=== PATIENT | female | born 1955 | race Caucasian/White ===

== ENCOUNTER 2019-10-18 16:52 | Emergency (ER) | payer MEDICARE, SELFPAY ==
--- NOTE | 2019-10-18 17:03 | ED.GENADULT ---
HPI - General Adult General Chief complaint: Upper Respiratory Infection Stated complaint: Sore throat Time Seen by Provider: 10/18/19 17:18 Source: patient Mode of arrival: ambulatory Limitations: no limitations History of Present Illness HPI narrative: 63-year-old female patient presents to the [facility] with complaints of sore throat that started last night. Patient states that she has had strep before in the past but is been several years. Patient unknown if she has had any fever. Patient states she has had shortness of breath but that is not new due to the fact that she has history of COPD. Patient states a little bit of bilateral ear pain. Denies any runny nose. Related Data Home Medications Medication Instructions Recorded Confirmed albuterol sulfate 90 mcg/actuation 1 puff INHALATION Q4H PRN 04/19/19 08/17/19 aerosol inhaler celecoxib 200 mg capsule 200 mg PO DAILY 04/19/19 08/17/19 duloxetine 60 mg capsule,delayed 60 mg PO DAILY 04/19/19 08/17/19 release losartan 100 mg tablet 100 mg PO DAILY 04/19/19 08/17/19 simvastatin 40 mg tablet 40 mg PO DAILY 04/19/19 08/17/19 tramadol 50 mg tablet 50 mg PO Q4H PRN 04/19/19 08/17/19 Allergies Allergy/AdvReac Type Severity Reaction Status Date / Time codeine Allergy Mild Confusion Verified 08/17/19 09:56 guaifenesin Allergy Unknown unkn Verified 08/17/19 09:56 lisinopril Allergy Unknown unk Verified 08/17/19 09:56 pseudoephedrine Allergy Unknown unk Verified 08/17/19 09:56 Review of Systems Review of Systems: Narrative: CONSTITUTIONAL: Denies fever, chills, or sweats. EYES: Denies visual changes, redness, or discharge. ENT: Denies rhinorrhea, congestion, positive sore throat, positive bilateral otalgia. CARDIOVASCULAR: Denies chest pain, palpitations, or edema. RESPIRATORY: Denies cough positive chronic dyspnea. GASTROINTESTINAL: Denies abdominal pain, nausea, vomiting, or diarrhea. GENITOURINARY: Denies dysuria or hematuria. SKIN: Denies rash or itching. MUSCULOSKELETAL: Denies back pain, joint pain, or myalgia. NEUROLOGIC: Denies headache, numbness, or weakness. PSYCHIATRIC: Denies anxiety or depression. [facility] Past Medical History Medical History (Updated 10/18/19 @ 17:30 by TRA Garcia) COPD (chronic obstructive pulmonary disease) Fibromyalgia Hypertension COLUMBA (obstructive sleep apnea) Surgical History Surgical History (Updated 10/18/19 @ 17:30 by TRA Garcia) H/O: hysterectomy Hx of laparoscopic gastric banding Family History Family History Father Acute myocardial infarction, Onset Age: 84 Family history of cardiovascular disease, Onset Age: 82 Sibling Cerebrovascular accident Family history of chronic obstructive pulmonary disease Family history of malignant neoplasm of ovary Mother Family history of chronic obstructive pulmonary disease, Onset Age: 84 Other Family history of emphysema Social History Social History Smoking status: Former smoker Smoking end date: 03/23/03 Alcohol intake: never Comments At the time of my signature I agree with nursing past medical history, surgical, social, and family history. There is no relevant family history pertinent to the presenting complaint. Exam Narrative: Exam Narrative: GENERAL: Well-appearing, well-nourished, and in no acute distress. HEAD: Normocephalic, atraumatic. EYES: PERRLA and EOMI. ENT: Nares clear, no rhinorrhea or epistaxis. Mucous membranes moist. Bilateral TMs are clear with no erythema or foreign bodies to the canal. Posterior pharynx with erythema and 2+ tonsil enlargement. No exudates or lesions present. NECK: Supple. No lymphadenopathy CHEST: Clear to auscultation. No respiratory distress. HEART: Regular rate and rhythm. No murmur heard. Normal peripheral pulses. ABDOMEN: Soft, nontender, nondistended, normal
[2019-10-18 17:15] VITALS: BP 140/61; PULSE 103; RESP 16; TEMP 36.7; O2SAT 96
== END 2019-10-18 17:33 | disposition home or self-care (01) ==
PROVIDERS: Emergency Provider Nurse Practitioner Family
DX: J02.0 Streptococcal pharyngitis (principal); Z20.828 Contact with and (suspected) exposure to other viral communicable diseases; Z87.891 Personal history of nicotine dependence; J44.9 Chronic obstructive pulmonary disease, unspecified; M79.7 Fibromyalgia; I10 Essential (primary) hypertension; G47.33 Obstructive sleep apnea (adult) (pediatric)
CPT/HCPCS: 87880; 99213; G0463

== ENCOUNTER 2020-05-18 13:21 | Outpatient (CLI) | payer MEDICARE, SELFPAY ==
--- NOTE | ~2020-05-18 | US_ITS ---
EXAMINATION: US venous doppler [facility] EXAM DATE: 05/18/2020 14:15 INDICATION: Left leg pain. TECHNIQUE: Multiple grayscale, color flow and Doppler images of the left lower extremity deep venous system were obtained and reviewed. Comparison is made to prior examination from 08/31/2017. FINDINGS: The left common femoral, femoral and profunda veins demonstrate normal color flow, respirat ory variation, augmentation and compressibility. Compressibility, color flow confirmed within the le ft popliteal, posterior tibial, peroneal, and greater saphenous veins. IMPRESSION: No left lower extremity deep venous thrombosis. Reviewed, dictated and finalized at location B. PARTNER
== END 2020-05-18 13:22 | disposition home or self-care (01) ==
LOC: ANHIMG 13:29
DX: M79.662 Pain in left lower leg (principal)
CPT/HCPCS: 93971

== ENCOUNTER 2020-10-25 13:51 | Inpatient (IN) | payer MEDICARE, SELFPAY ==
[2020-10-25] VITALS (17 sets, daily range): BP systolic 111–156; BP diastolic 44–101; PULSE 72–99; RESP 20–38; TEMP 36.1–37.3; O2SAT 86–98; BMI 65.2
--- NOTE | ~2020-10-25 | XR_ITS ---
EXAMINATION: XR chest 1V portable INDICATION: Cough, history of COVID TECHNIQUE: Portable AP chest at 1438 hours COMPARISON: 07/19/2015 FINDINGS: There are diffuse opacities throughout all lung zones. The heart size is normal for techniq ue. No pleural effusion or pneumothorax is identified. IMPRESSION: 1. Diffuse lung disease, consistent with pneumonia and/or pulmonary edema. Reviewed, dictated and finalized at location A.
--- NOTE | ~2020-10-25 | CT_ITS ---
EXAMINATION: CTA chest PE protocol DATE: 10/25/2020 16:06 INDICATION: Shortness of breath, elevated d-dimer TECHNIQUE: Computed tomography angiography (CTA) of the chest was performed with 100 mL Omnipaque-350 intravenous contrast timed to evaluate the pulmonary arteries. Coronal maximum intensity projection 3D-reconstructions were created by the technologist. The dose-length product (DLP) was 976.43 mGy-cm. Automated exposure control and iterative reconstruction technique were employed. COMPARISON: 08/31/2017 FINDINGS: The pulmonary arteries are moderately well-opacified. No pulmonary embolism is identified. There are diffuse opacities throughout all lung zones. There is no pleural effusion or pneumothorax. There are stable nodules of thyroid measuring up to 1.3 cm. The heart size is normal. No pathological ly enlarged thoracic lymph nodes are identified. There is a small sliding hiatal hernia. A gastric la p band is noted. The gallbladder is surgically absent. The liver is diffusely low in attenuation when compared with the spleen, consistent with hepatic steatosis. There is moderate thoracic spondylosis. IMPRESSION: 1. Diffuse lung disease, consistent with pneumonia and/or pulmonary edema and/or acute respiratory di stress syndrome (ARDS). 2. No pulmonary embolus identified. Reviewed, dictated and finalized at location A. IMPRESSION: 1. Diffuse lung disease, consistent with pneumonia and/or pulmonary edema and/o r acute respiratory distress syndrome (ARDS). 2. No pulmonary embolus identified.
--- NOTE | ~2020-10-25 | XR_ITS ---
XR chest 1V portable 10/27/2020 06:01 Indication: Acute respiratory failure. Pneumonia. Procedure: AP portable chest Comparison: Comparison to multiple prior studies sequentially, with oldest reviewed study dated 04/2011. Findings: Cardiomegaly with diffuse bilateral airspace disease, most confluent in the right upper lob e. No pleural effusion or pneumothorax. Impression: 1: Diffuse bilateral airspace disease which may represent pneumonia and/or edema. Reviewed, dictated and finalized at location A. Impression: 1: Diffuse bilateral airspace disease which may represent pneumonia and/or yuniel a.
--- NOTE | ~2020-10-25 | XR_ITS ---
EXAMINATION: XR chest 1V portable DATE: 10/26/2020 08:44 INDICATION: COVID pneumonia TECHNIQUE: frontal view of the chest was obtained. COMPARISON: Chest radiograph and CT dated 10/25/2020 FINDINGS: No significant interval change in extensive patchy airspace opacities throughout both lungs relativel y sparing apices and right lower lung zone. No pleural effusion. The cardiomediastinal silhouette is normal. IMPRESSION: 1. No significant change in diffuse lung disease consistent with multifocal pneumonia and/or pulmonar y edema. Reviewed, dictated and finalized at location A. IMPRESSION: 1. No significant change in diffuse lung disease consistent with multifocal pne umonia and/or pulmonary edema.
--- NOTE | 2020-10-25 14:01 | ECG_ITS ---
Measurements Intervals [place] Rate: 95 P: 54 MO: 162 QRS: 4 QRSD: 102 T: 64 QT: 368 QTc: 465 Interpretive Statements SINUS RHYTHM DELAYED PRECORDIAL R/S TRANSITION BORDERLINE ECG Electronically Signed On 10-25-2020 16:34:27 CDT by Vern Molina D.O.
--- NOTE | 2020-10-25 14:40 | PC.NURSE ---
labs still needed on this pt. She was taken to X-ray
[2020-10-25 15:18] LABS: Basophils Percent Auto 0.2 % (0.2-1.2); Hematocrit 39.4 % (37.0-47.0); Immature Granulocyte Absolute 0.09 K/mm3 (0.00-0.031); Immature Granulocyte Percent A 0.9 % (0-0.5); Lymphocytes Absolute Auto 1.41 K/mm3 (0.9-3.2); Lymphocytes Percent Auto 13.9 % (18.3-44.2); Mean Corpuscular HGB Conc 30.5 g/dl (32-36); Mean Corpuscular Hemoglobin 25.2 pg (26-34); Mean Corpuscular Volume 82.8 fl (80-100); Mean Platelet Volume 9.7 fl (7.4-10.4); Monocytes Absolute Auto 1.1 K/mm3 (0.1-0.6); Monocytes Percent Auto 11.1 % (2.6-8.5); Neutrophils Absolute Auto 7.5 K/mm3 (1.3-6.7); Neutrophils Percent Auto 73.9 % (45.5-73.1); Platelet Count Result 356 k/mm3 (150-375); Red Blood Count 4.76 M/mm3 (4.2-5.4); Red Cell Distribution Width 15.8 % (11.5-14.5); White Blood Count 10.1 K/mm3 (4.5-10.0)
[2020-10-25 15:28] LABS: Prothrombin Time 12.7 Seconds (11.1-14.7)
[2020-10-25 15:29] LABS: Partial Thromboplastin Time 34.5 SECONDS (22.3-36.8)
[2020-10-25 15:30] LABS: Alanine Aminotransferase 35 U/L (4-35); Albumin Level 3.2 g/dL (3.5-5.1); Alkaline Phosphatase 153 U/L (38-126); Anion Gap 6 mmol/L (8-16); Aspartate Amino Transferase 56 U/L (14-36); Bilirubin,Total 0.4 mg/dL (0.2-1.3); Blood Urea Nitrogen 15 mg/dL (7-17); Calcium 7.8 mg/dL (8.4-10.2); Carbon Dioxide 30 mmol/L (22-30); Chloride 100 mmol/L (98-107); Estimated CRCL calculation 80 ml/min; Estimated Glomerular Filt Rate 56; Glucose 116 mg/dL (65-110); Potassium 3.2 mmol/L (3.4-5.0); Sodium 136 mmol/L (137-145)
[2020-10-25 15:31] LABS: D Dimer 0.81 ug/mL (<0.48)
--- NOTE | 2020-10-25 15:51 | ED.SOB ---
HPI - SOB/Dyspnea General Chief Complaint: Shortness of Breath/Dyspnea Stated Complaint: SOB, COVID Positive, Weakness Time Seen by Provider: 10/25/20 14:01 Source: RN notes reviewed History of Present Illness HPI Narrative: Patient presents emergency department for shortness of breath. Patient states she was diagnosed with COVID-19 approximately 1 week ago states she did receive the Dae & Dae vaccine patient noted to have increasing shortness of breath was noted to have oxygen saturation in the upper 80s on room air she denies any fevers or chills, chest pain abdominal pain nausea vomiting or any other symptoms patient states her testing was done at [facility] when she been contacted by the [facility] that her test was positive Related Data Home Medications Medication Instructions Recorded Confirmed albuterol sulfate 90 mcg/actuation 1 puff INHALATION Q4H PRN 04/19/19 10/25/20 aerosol inhaler celecoxib 200 mg capsule 200 mg PO DAILY 04/19/19 10/25/20 duloxetine 60 mg capsule,delayed 60 mg PO DAILY 04/19/19 10/25/20 release losartan 100 mg tablet 100 mg PO DAILY 04/19/19 10/25/20 simvastatin 40 mg tablet 40 mg PO DAILY 04/19/19 10/25/20 tramadol 50 mg tablet 50 mg PO Q4H PRN 04/19/19 10/25/20 Allergies Allergy/AdvReac Type Severity Reaction Status Date / Time codeine Allergy Mild Confusion Verified 10/25/20 14:09 guaifenesin Allergy Unknown unkn Verified 10/25/20 14:09 lisinopril Allergy Unknown unk Verified 10/25/20 14:09 pseudoephedrine Allergy Unknown unk Verified 10/25/20 14:09 Review of Systems Review of Systems: Gen.: Denies fevers or chills ENT: Denies congestion Respiratory see HPI CV: Denies chest pain or palpitations GI: Denies abdominal pain nausea, emesis or diarrhea Musculoskeletal: Denies back pain or muscle pain Neuro: Denies numbness, tingling, weakness or focal weakness Skin: Denies rash Except as documented, all other systems reviewed and negative [facility] Past Medical History Medical History COPD (chronic obstructive pulmonary disease) Fibromyalgia Hypertension COLUMBA (obstructive sleep apnea) Surgical History Surgical History H/O: hysterectomy Hx of laparoscopic gastric banding Family History Family History Father Acute myocardial infarction, Onset Age: 84 Family history of cardiovascular disease, Onset Age: 82 Sibling Cerebrovascular accident Family history of chronic obstructive pulmonary disease Family history of malignant neoplasm of ovary Mother Family history of chronic obstructive pulmonary disease, Onset Age: 84 Other Family history of emphysema Social History Social History Smoking status: Former smoker Smoking end date: 03/23/03 Alcohol intake: never Gender identity (if verbalized by the patient): Female Exam Narrative: APPEARANCE: No acute distress, nontoxic, resting in bed EYES: EOMI HEENT: Normocephalic, atraumatic, OMM RESPIRATORY: No respiratory distress decreased breath sounds bilateral lung bases, no rhonchi CARDIOVASCULAR: Regular rate and rhythm without murmurs rubs or gallops. ABDOMINAL: Soft, nontender, nondistended, no rebound or guarding MUSCULOSKELETAl: Moves all extremities. No clubbing, cyanosis or edema. NEURO: Awake and alert. Following commands, speech normal, no focal deficits SKIN:: Warm, dry. No rashes lesions or abrasions PSYCHIATRIC: Normal affect/mood, Course Course Emergency Course: Discussed with SKYLAR Yao for Dr Chamberlain presentation and work-up. Agrees with admission at this time request patient admitted IMU request patient started on Decadron Discussed with patient and family results of workup and diagnosis. Discussed need for admission. Patient and
[2020-10-25] MEDS: ALBUTEROL SULFATE (*SP) AEROSOL 1 PUFF 2 PUFF INHALATION (16:16)
[2020-10-25] MEDS: ALBUTEROL SULFATE (*SP) INHALER 1 PUFF (16:16)
[2020-10-25 16:54] LABS: NT Pro B Type Natriuretic Pept 107 pg/mL (5-100)
[2020-10-25 16:58] LABS: Lactate Dehydrogenase 1045 U/L (313-618)
[2020-10-25] MEDS: DEXAMETHASONE SOD PHOS INJ 4 MG/ML VIAL 6 MG IV PUSH (17:28)
--- NOTE | 2020-10-25 18:35 | PC.NURSE ---
This patient, Fay Che, was admitted to Intensive Care Unit-6. Patient/family oriented to hospital policies and general routines including ID bracelet, bed and alarms, visiting hours, pain management, procedures, bathroom and other care routines, personal items, smoking policy, room service/diet, and visiting hours. Information on how to activate the Rapid Response Team has been discussed. Patient/Family are encouraged to report perceived risks to care and to ask questions if they do not understand what they are told or what they should do.
--- NOTE | 2020-10-25 18:45 | PC.NURSE ---
Pt. attempted to get up to urinate and was having a hard time and requested to be straight cathed
[2020-10-25 18:52] LABS: CRP 12.6 mg/dL (<1.0)
[2020-10-25] MEDS: ALBUTEROL SULFATE NEB 2.5 MG/0.5 ML INH 5 MG INHALATION (20:41)
[2020-10-25 21:18] LABS: Procalcitonin 0.1 ng/mL
--- NOTE | 2020-10-25 21:30 | PM.IMHP ---
H&P: HPI History of Present Illness Date/Time: 10/25/20 21:30 <Najma Mims PA-C - Last Filed: 10/25/20 23:47> Chief Complaint: Shortness of breath. <Najma Mims PA-C - Last Filed: 10/25/20 23:47> Narrative: This is a 64-year-old female with chronic respiratory failure on 2 L nasal cannula with exertion, chronic obstructive pulmonary disease, obstructive sleep apnea on CPAP, hypertension, and morbid obesity who presented to the emergency department earlier today via EMS from home for evaluation of shortness of breath. She and her have not been feeling well for nearly 2 weeks with generalized malaise, decreased appetite, body aches, and cough. She was prescribed doxycycline on October 17 and despite finishing the full course of antibiotic she has continued to feel worse. On ThursdayOctober 22 she tested positive for COVID-19 at a testing site in [facility] though she was called by the [facility] department. Since that time she has had increasing dyspnea on lesser and lesser exertion and continues to have a cough productive of light colored sputum. This morning she was increasingly short of breath and her SpO2 was reportedly in the 60s on home pulse oximeter and thus her family members called 911. On EMS arrival she was cool and clammy and they were unable to obtain an SpO2 at that time. She was reportedly very wheezy and after a nebulizer her lungs did open up and she seemed more stable in the emergency department. Chest x-ray and CT showed diffuse lung disease compatible with COVID pneumonia and possible pulmonary edema with concerns for ARDS and she is being admitted in this setting. At the time my evaluation she is in good spirits and actually looks quite a bit better than what her tests would suggest. She has no specific complaints at this time and denies current headache, chest pain, pleuritic pain, vomiting, and diarrhea. Of note, the patient did receive the Dae and Dae vaccine several months ago. Her was recently on a [employer] field trip and they believe that he must have contracted COVID there. <Najma Mims PA-C - Last Filed: 10/25/20 23:47> Review of Systems Review of Systems: Twelve systems were reviewed with pertinent positives and negatives as per HPI. No significant headache. She is not having any sinus congestion, rhinorrhea, otalgia, or odynophagia at this time. No chest pain or pleuritic pain. Mild orthopnea but that is unchanged. No significant lower extremity edema. Appetite has not been good and she reports that her taste has been off. Some nausea mainly in the mornings but no vomiting. She is compliant with her CPAP and has been wearing it with naps. Except as documented, all other systems were reviewed and are negative. <Najma Mims PA-C - Last Filed: 10/25/20 23:47> [facility] Past Medical History Medical History: Medical History (Updated 10/25/20 @ 22:52 by Najma Mims PA-C) Arthritis Chronic obstructive pulmonary disease Chronic respiratory failure with hypoxia, on home oxygen therapy 2 L nasal cannula with exertion, none at rest. Fibromyalgia Gastroesophageal reflux disease Hypercholesterolemia Hypertension Morbid obesity Obstructive sleep apnea on CPAP CPAP at 13 cm water pressure. Overactive bladder <Najma Mims PA-C - Last Filed: 10/25/20 23:47> Surgical History Surgical History: Surgical History (Updated 10/25/20 @ 22:45 by Najma Mims PA-C) History of bilateral cataract extraction History of section History of cholecystectomy History of endometrial ablation History of hysterectomy Benign pathology. History of laparoscopic adjustable gastric banding <Najma Mims PA-C - Last Filed: 10/25/20 23:47> Family History Family History: Family History Father Acute myocardial infarction, Onset Age: 84 Fami
[2020-10-25 23:28] LABS: Prothrombin Time 12.8 Seconds (11.1-14.7)
[2020-10-25 23:40] LABS: Alanine Aminotransferase 32 U/L (4-35); Estimated CRCL calculation 99 ml/min; Estimated Glomerular Filt Rate > 60; Potassium 3.6 mmol/L (3.4-5.0)
[2020-10-26] VITALS (21 sets, daily range): BP systolic 119–159; BP diastolic 76–90; PULSE 10–102; RESP 24–40; TEMP 36.6–37; O2SAT 91–96
--- NOTE | 2020-10-26 | ECHO_ITS ---
Patient Info Name: Fay Che Age: 64 years : 1955 Gender: Female Ht: 64 in Wt: 380 lbs BSA: 2.91 m2 HR: 94 bpm BP: 159 / 78 mmHg Technical Quality: Poor Exam Date: 10/26/2020 9:15 AM Exam Location: [facility] Patient Status: Inpatient Admit Date: 10/26/2020 Staff Ordering Physician: Najma Mims PA-C Compounder Flavorings: Cathy Pleitez RDCS Attending Provider: Shonda Almanza MD Referring Physician: Prasanna TAMEZ; Exam Type: CA echo doppler color flow Study Info Indications - HYPOXIA I10 - Essential (primary) hypertension - COLUMBA Complete two-dimensional, color flow and Doppler transthoracic echocardiogram is performed. Reason for Poor Study: patient body habitus Summary 1. Complete two-dimensional, color flow and Doppler transthoracic echocardiogram is performed. 2. Left ventricular chamber dimension is normal. 3. Left ventricular systolic function is normal, estimated at 60-65%. 4. The left ventricular diastolic function is grade I diastolic dysfunction. 5. E/e' 10 is mildly elevated. 6. There is mild tricuspid valve regurgitation. 7. Mild pulmonary hypertension, estimated pulmonary arterial systolic pressure is 46 mmHg. Left Ventricle E/e' 10 is mildly elevated. Left ventricular chamber dimension is normal. Left ventricular systolic function is normal, estimated at 60-65%. The left ventricular diastolic function is grade I diastolic dysfunction. Right Ventricle Right ventricular systolic function is normal and with normal TAPSE 2.4 cm. Right ventricular chamber dimension is normal. Left Atria Left atrial chamber dimension is normal. Right Atria Right atrial chamber dimension is normal. Aortic Valve The aortic valve is trileaflet. There is no aortic valve stenosis. There is no aortic valve regurgitation. Pulmonic Valve There is no pulmonic regurgitation. Mitral Valve There is no mitral valve stenosis. There is no mitral valve regurgitation. Tricuspid Valve There is mild tricuspid valve regurgitation. Mild pulmonary hypertension, estimated pulmonary arterial systolic pressure is 46 mmHg. Pericardium/Pleural There is no pericardial effusion. Inferior Vena Cava Inferior vena cava is not well visualized. Aorta The aortic root size at the sinus of Valsalva is normal. Left Ventricular Outflow Tract Name Value Normal LVOT 2D LVOT Diameter 2.0 cm LVOT Doppler LVOT Peak Gradient 4 mmHg LVOT Mean Gradient 2 mmHg LVOT VTI 22 cm LVOT VTI/AV VTI Ratio 0.9 LVOT Stroke Volume 70 ml LVOT CO 6.4 l/min LVOT CI 2.2 l/min/m2 Pulmonic Valve Name Value Normal RVOT Doppler RV
[2020-10-26] MEDS: POTASSIUM CHLORIDE 20 MEQ TABLET PO (00:26)
[2020-10-26] MEDS: REMDESIVIR 200 MG/NS 250 ML 200 MG/250 ML BAG 250 MG IVPB (00:26)
[2020-10-26] MEDS: PANTOPRAZOLE 40 MG TABLET PO ×2 (00:27→20:23)
[2020-10-26] MEDS: SIMVASTATIN 20 MG TABLET 40 MG PO ×2 (00:27→20:22)
[2020-10-26] MEDS: ALBUTEROL SULFATE NEB 2.5 MG/0.5 ML INH 5 MG INHALATION ×4 (01:41→20:52)
[2020-10-26] MEDS: IPRATROPIUM BR 0.02% INH SOLN 0.5 MG/2.5 ML VIAL INHALATION ×4 (01:42→20:52)
[2020-10-26 04:16] LABS: Basophils Percent Auto 0.2 % (0.2-1.2); Hematocrit 37.3 % (37.0-47.0); Hemoglobin 11.7 g/dL (12.0-15.0); Immature Granulocyte Absolute 0.11 K/mm3 (0.00-0.031); Immature Granulocyte Percent A 1.2 % (0-0.5); Lymphocytes Absolute Auto 0.84 K/mm3 (0.9-3.2); Lymphocytes Percent Auto 9.1 % (18.3-44.2); Mean Corpuscular HGB Conc 31.4 g/dl (32-36); Mean Corpuscular Hemoglobin 25.7 pg (26-34); Mean Corpuscular Volume 81.8 fl (80-100); Mean Platelet Volume 9.8 fl (7.4-10.4); Monocytes Absolute Auto 0.8 K/mm3 (0.1-0.6); Monocytes Percent Auto 8.5 % (2.6-8.5); Neutrophils Absolute Auto 7.5 K/mm3 (1.3-6.7); Platelet Count Result 403 k/mm3 (150-375); Red Blood Count 4.56 M/mm3 (4.2-5.4); Red Cell Distribution Width 15.6 % (11.5-14.5); White Blood Count 9.2 K/mm3 (4.5-10.0)
[2020-10-26 04:27] LABS: Prothrombin Time 13.5 Seconds (11.1-14.7)
[2020-10-26 04:30] LABS: Alanine Aminotransferase 31 U/L (4-35); Albumin Level 2.9 g/dL (3.5-5.1); Alkaline Phosphatase 145 U/L (38-126); Anion Gap 8 mmol/L (8-16); Aspartate Amino Transferase 44 U/L (14-36); Bilirubin,Total 0.5 mg/dL (0.2-1.3); Blood Urea Nitrogen 13 mg/dL (7-17); CRP 8.1 mg/dL (<1.0); Calcium 8.1 mg/dL (8.4-10.2); Carbon Dioxide 29 mmol/L (22-30); Chloride 103 mmol/L (98-107); Estimated CRCL calculation 100 ml/min; Estimated Glomerular Filt Rate > 60; Glucose 156 mg/dL (65-110); Lactate Dehydrogenase 992 U/L (313-618); Potassium 3.7 mmol/L (3.4-5.0); Sodium 140 mmol/L (137-145)
[2020-10-26 06:37] LABS: Alveolar/Arterial O2 Gradient 253.4 mmHg; Base Excess ABG 4.4 mEq/l (+/-2.0); Carboxyhemoglobin 0.3 % THb (0-2.0); Fractional Inspired Oxygen 52 %; HCO3 ABG 29.1 mEq/l (22.0-26.0); Methemoglobin ABG 0.4 %THb (0-1.5); Oxygen Content ABG 18.2 %vol (16.0-22.0); Oxygen Saturation ABG 94.2 % (95.0-100.0); Oxyhemoglobin 92.3 % THb (90.0-100.0); PCO2 ABG 43.7 mmHg (35.0-45.0); PO2 ABG 68.4 mmHg (80.0-100.0); PO2 FiO2 Ratio Arterial Blood 1.32 %; Site Drawn LEFT RADIAL; pH ABG 7.441 (7.350-7.450)
[2020-10-26 06:38] LABS: Device HIGH FLOW NASAL CANN; Modified Allen's Test Pass
[2020-10-26] MEDS: TOLTERODINE TARTRATE 2 MG TABLET PO ×2 (08:21→16:37)
[2020-10-26] MEDS: DULoxetine HCL 60 MG CAPSULE.DR PO (08:21)
[2020-10-26] MEDS: LOSARTAN POTASSIUM 100 MG TABLET PO (08:21)
[2020-10-26] MEDS: ENOXAPARIN 40 MG/0.4 ML SYRINGE SUB-Q (08:22)
[2020-10-26] MEDS: DEXAMETHASONE SOD PHOS INJ 4 MG/ML VIAL 6 MG IV PUSH (08:22)
[2020-10-26] MEDS: FUROSEMIDE INJ 40 MG/4 ML VIAL IV PUSH (08:26)
--- NOTE | 2020-10-26 11:41 | PM.IMPN ---
Progress Note: A&P Assessment and Plan (1) Acute and chronic respiratory failure with hypoxia: Code(s): J96.21 - Acute and chronic respiratory failure with hypoxia Status: Acute Assessment and Plan: Patient has chronic hypoxia and is on oxygen with exertion due to COPD. Currently on 8 L high-flow nasal cannula. -patient has been saturating well, and given her COPD and chronic respiratory failure on home O2 2 L via nasal cannula, will wean FiO2 as tolerated to maintain O2 sats greater than 90-92% -Chest CT and x-ray showed diffuse lung disease which is likely related to COVID pneumonia however cannot rule out ARDS. ProBNP is only mildly elevated making heart failure less likely though it may be prudent to obtain an echocardiogram. -she is agreeable for intubation if that point arises (2) Pneumonia due to COVID-19 virus: Code(s): U07.1 - COVID-19; J12.82 - Pneumonia due to coronavirus disease 2018 Status: Acute Assessment and Plan: Continue remdesivir and dexamethasone. -since her oxygen requirements have gone up and the inflammatory markers are still elevated specially the CRP is 8.1. I discussed with her regarding tocilizumab, I did tell about the benefits as it has shown decrease in modality and reduction in the progression to mechanical ventilation and also updated with the side effects. She is agreeable to receive tocilizumab. So I have ordered it. -continue contact, droplet, airborne isolation/precautions -continue to trend inflammatory markers. (3) Hypokalemia: Code(s): E87.6 - Hypokalemia Status: Acute Assessment and Plan: Resolved (4) Morbid obesity: Code(s): E66.01 - Morbid (severe) obesity due to excess calories Status: Acute Assessment and Plan: Patient with history of lap band which is still in place. Weight loss is encouraged. (5) Obstructive sleep apnea on CPAP: Code(s): G47.33 - Obstructive sleep apnea (adult) (pediatric); Z99.89 - Dependence on other enabling machines and devices Status: Acute Assessment and Plan: Have ordered CPAP for night at the home settings (6) Chronic obstructive pulmonary disease: Code(s): J44.9 - Chronic obstructive pulmonary disease, unspecified Status: Acute Assessment and Plan: Continue bronchodilators -patient on dexamethasone (7) Hypertension: Code(s): I10 - Essential (primary) hypertension Status: Chronic Assessment and Plan: Blood pressures were reviewed and they are reasonably well controlled. Continue antihypertensives and monitor daily. Additional Plan Discussed with patient, have left a message for her daughter Myrna Code status: Full code Subjective Date/time seen: 10/26/20 11:41 Interval history: 64-year-old female with history of COPD, chronic respiratory failure, on home oxygen, GERD, hypercholesterolemia, essential hypertension, morbid obesity, obstructive sleep apnea on CPAP of 13 cm water pressure at home with increasing shortness of breath and positive COVID-19 test on 10/22/2020. Patient complained of increasing shortness of breath along with productive cough. EMS arrival to the house patient's O2 sats were in the 80s on her home oxygen. She denies any fevers or chills, chest pain, abdominal pain, nausea, vomiting. Patient did receive Dae & Dae COVID vaccine. She thinks she may have contracted from a was on a youth should she feel trip. Chest x-ray and chest CTA showed diffuse lung disease compatible COVID. No pulmonary embolism. Patient seen and examined for hospitalist room. Patient is on 8 L high-flow oxygen via nasal cannula with adequate O2 sats. Patient has been tolerating her diet. She does drop her oxygen saturation with movement. Patient states she uses a cane to walk at home. Patient's CRP is 8.1, elevated says LDH. Ferritin is within normal limits. Patient states she feels a little
[2020-10-26] MEDS: TOCILIZUMAB 800 MG in SODIUM CHLORIDE 0.9% IV 60 ML 100 MG IVPB (12:49)
--- NOTE | 2020-10-26 23:03 | PC.NURSE ---
This patient, Fay Che, was transferred to [facility] on 10/26/20 at 2235. Personal belongings sent with patient. Report given to SIMONA Ellis. Appropriate documentation sent with patient.
[2020-10-26] MEDS: REMDESIVIR 100 MG/NS 250 ML 100 MG/250 ML BAG 250 MG IVPB (23:40)
[2020-10-27] VITALS (23 sets, daily range): BP systolic 120–158; BP diastolic 77–108; PULSE 82–98; RESP 20–30; TEMP 36.3–36.8; O2SAT 89–99
[2020-10-27] MEDS: ALBUTEROL SULFATE NEB 2.5 MG/0.5 ML INH 5 MG INHALATION ×4 (01:19→21:24)
[2020-10-27] MEDS: IPRATROPIUM BR 0.02% INH SOLN 0.5 MG/2.5 ML VIAL INHALATION ×4 (01:19→21:24)
[2020-10-27 05:26] LABS: Basophils Percent Auto 0.3 % (0.2-1.2); Hematocrit 40.1 % (37.0-47.0); Hemoglobin 12.2 g/dL (12.0-15.0); Immature Granulocyte Absolute 0.12 K/mm3 (0.00-0.031); Immature Granulocyte Percent A 1.3 % (0-0.5); Lymphocytes Absolute Auto 1.13 K/mm3 (0.9-3.2); Lymphocytes Percent Auto 12.2 % (18.3-44.2); Mean Corpuscular HGB Conc 30.4 g/dl (32-36); Mean Corpuscular Hemoglobin 25.6 pg (26-34); Mean Corpuscular Volume 84.1 fl (80-100); Mean Platelet Volume 9.5 fl (7.4-10.4); Monocytes Absolute Auto 1.2 K/mm3 (0.1-0.6); Monocytes Percent Auto 12.8 % (2.6-8.5); Neutrophils Absolute Auto 6.8 K/mm3 (1.3-6.7); Neutrophils Percent Auto 73.4 % (45.5-73.1); Nucleated Red Blood Cells Perc 0.2 % (0.0-0.2); Platelet Count Result 344 k/mm3 (150-375); Red Blood Count 4.77 M/mm3 (4.2-5.4); Red Cell Distribution Width 15.9 % (11.5-14.5); White Blood Count 9.3 K/mm3 (4.5-10.0)
[2020-10-27 05:45] LABS: INR 1.1; Prothrombin Time 13.6 Seconds (11.1-14.7)
[2020-10-27 05:48] LABS: D Dimer 1.07 ug/mL (<0.48)
[2020-10-27 05:50] LABS: Alanine Aminotransferase 30 U/L (4-35); Albumin Level 3.1 g/dL (3.5-5.1); Alkaline Phosphatase 123 U/L (38-126); Anion Gap 6 mmol/L (8-16); Aspartate Amino Transferase 42 U/L (14-36); Bilirubin,Total 0.6 mg/dL (0.2-1.3); Blood Urea Nitrogen 22 mg/dL (7-17); CRP 5.4 mg/dL (<1.0); Carbon Dioxide 31 mmol/L (22-30); Chloride 101 mmol/L (98-107); Estimated CRCL calculation 130 ml/min; Estimated Glomerular Filt Rate > 60; Glucose 130 mg/dL (65-110); Lactate Dehydrogenase 1163 U/L (313-618); Potassium 3.9 mmol/L (3.4-5.0); Sodium 138 mmol/L (137-145)
[2020-10-27] MEDS: DEXAMETHASONE SOD PHOS INJ 4 MG/ML VIAL 6 MG IV PUSH (08:43)
[2020-10-27] MEDS: TOLTERODINE TARTRATE 2 MG TABLET PO ×2 (08:44→18:00)
[2020-10-27] MEDS: LOSARTAN POTASSIUM 100 MG TABLET PO (08:44)
[2020-10-27] MEDS: DULoxetine HCL 60 MG CAPSULE.DR PO (08:44)
[2020-10-27] MEDS: ENOXAPARIN 40 MG/0.4 ML SYRINGE SUB-Q ×2 (08:45→21:32)
--- NOTE | 2020-10-27 17:34 | PM.IMPN ---
Progress Note: A&P Assessment and Plan (1) Acute and chronic respiratory failure with hypoxia: Code(s): J96.21 - Acute and chronic respiratory failure with hypoxia Status: Acute Assessment and Plan: Patient has chronic hypoxia and is on oxygen with exertion due to COPD. Currently on 8 L high-flow nasal cannula. -patient has been saturating well, and given her COPD and chronic respiratory failure on home O2 2 L via nasal cannula, will wean FiO2 as tolerated to maintain O2 sats greater than 90-92% (2) Pneumonia due to COVID-19 virus: Code(s): U07.1 - COVID-19; J12.82 - Pneumonia due to coronavirus disease 2018 Status: Acute Assessment and Plan: Continue remdesivir and dexamethasone (started on 10/25) Tocilizumab given -continue contact, droplet, airborne isolation/precautions -continue to trend inflammatory markers. (3) Hypokalemia: Code(s): E87.6 - Hypokalemia Status: Acute Assessment and Plan: Resolved (4) Morbid obesity: Code(s): E66.01 - Morbid (severe) obesity due to excess calories Status: Acute Assessment and Plan: Patient with history of lap band which is still in place. Weight loss is encouraged. (5) Obstructive sleep apnea on CPAP: Code(s): G47.33 - Obstructive sleep apnea (adult) (pediatric); Z99.89 - Dependence on other enabling machines and devices Status: Acute Assessment and Plan: CPAP for night at the home settings (6) Chronic obstructive pulmonary disease: Code(s): J44.9 - Chronic obstructive pulmonary disease, unspecified Status: Acute Assessment and Plan: Continue bronchodilators (7) Hypertension: Code(s): I10 - Essential (primary) hypertension Status: Chronic Assessment and Plan: Blood pressures were reviewed and they are reasonably well controlled. Continue antihypertensives and monitor daily. Subjective Date/time seen: 10/27/20 17:34 Interval history: 64-year-old female with history of COPD, chronic respiratory failure, on home oxygen, GERD, hypercholesterolemia, essential hypertension, morbid obesity, obstructive sleep apnea on CPAP of 13 cm water pressure at home with increasing shortness of breath and positive COVID-19 test on 10/22/2020. Patient complained of increasing shortness of breath along with productive cough. EMS arrival to the house patient's O2 sats were in the 80s on her home oxygen. She denies any fevers or chills, chest pain, abdominal pain, nausea, vomiting. Patient did receive Dae & Dae COVID vaccine. She thinks she may have contracted from a was on a youth should she feel trip. Chest x-ray and chest CTA showed diffuse lung disease compatible COVID. No pulmonary embolism. 10/27 visit: Patient seen and examined for hospitalist room. Patient is on 8 L high-flow oxygen via nasal cannula with adequate O2 sats. Patient has been tolerating her diet. She does drop her oxygen saturation with movement. No loss of sense of taste or smell Review of Systems Review of Systems: All systems reviewed & are unremarkable except as noted in HPI and below Exam Narrative: General: Moderately ill-appearing , in no acute distress, pleasant female HEENT: Normocephalic, atraumatic. PERRL, Sclerae is clear. Moist oral mucosa. Neck: No jvd. Respiratory: Mildly tachypneic. Adequate air entry, diminished at bases, coarse breath sounds bilaterally. Cardiovascular: Regular rate and rhythm with S1-S2. Distant heart tones. Gastrointestinal: Abdomen is soft, morbidly obese, nontender, and nondistended with positive bowel sounds. Skin: Warm and dry. Extremities: No cyanosis, clubbing, or significant edema. Neurological: CN symmetric to inspection Psychiatric: Pleasant and cooperative with normal mood and affect. A/O x 4. Judgment and insight intact. Objective Data Vital Signs Vital Signs: Vital Signs - 24 hr 08/06/
[2020-10-27] MEDS: SIMVASTATIN 20 MG TABLET 40 MG PO (21:31)
[2020-10-27] MEDS: PANTOPRAZOLE 40 MG TABLET PO (21:31)
[2020-10-27] MEDS: REMDESIVIR 100 MG/NS 250 ML 100 MG/250 ML BAG 250 MG IVPB (21:33)
[2020-10-28] VITALS (25 sets, daily range): BP systolic 123–159; BP diastolic 56–75; PULSE 84–98; RESP 18–30; TEMP 36.6–36.9; O2SAT 85–98
[2020-10-28] MEDS: ALBUTEROL SULFATE NEB 2.5 MG/0.5 ML INH 5 MG INHALATION ×4 (01:38→20:00)
[2020-10-28] MEDS: IPRATROPIUM BR 0.02% INH SOLN 0.5 MG/2.5 ML VIAL INHALATION ×4 (01:38→20:00)
[2020-10-28 05:41] LABS: Hematocrit 43.3 % (37.0-47.0); Hemoglobin 13.6 g/dL (12.0-15.0); Mean Corpuscular HGB Conc 31.4 g/dl (32-36); Mean Corpuscular Hemoglobin 25.6 pg (26-34); Mean Corpuscular Volume 81.4 fl (80-100); Mean Platelet Volume 9.5 fl (7.4-10.4); Platelet Count Result 474 k/mm3 (150-375); Red Blood Count 5.32 M/mm3 (4.2-5.4); Red Cell Distribution Width 15.7 % (11.5-14.5); White Blood Count 12.8 K/mm3 (4.5-10.0)
[2020-10-28 05:50] LABS: INR 1.1; Prothrombin Time 13.8 Seconds (11.1-14.7)
[2020-10-28 06:08] LABS: Alanine Aminotransferase 29 U/L (4-35); Albumin Level 3.1 g/dL (3.5-5.1); Alkaline Phosphatase 135 U/L (38-126); Anion Gap 8 mmol/L (8-16); Aspartate Amino Transferase 36 U/L (14-36); Bilirubin,Total 0.5 mg/dL (0.2-1.3); Blood Urea Nitrogen 25 mg/dL (7-17); Calcium 8.1 mg/dL (8.4-10.2); Carbon Dioxide 31 mmol/L (22-30); Chloride 100 mmol/L (98-107); Estimated CRCL calculation 113 ml/min; Estimated Glomerular Filt Rate > 60; Glucose 120 mg/dL (65-110); Potassium 3.9 mmol/L (3.4-5.0); Sodium 139 mmol/L (137-145)
[2020-10-28] MEDS: DEXAMETHASONE SOD PHOS INJ 4 MG/ML VIAL 6 MG IV PUSH (09:05)
[2020-10-28] MEDS: ENOXAPARIN 40 MG/0.4 ML SYRINGE SUB-Q ×2 (09:05→21:08)
[2020-10-28] MEDS: LOSARTAN POTASSIUM 100 MG TABLET PO (09:07)
[2020-10-28] MEDS: TOLTERODINE TARTRATE 2 MG TABLET PO ×2 (09:07→17:36)
[2020-10-28] MEDS: DULoxetine HCL 60 MG CAPSULE.DR PO (09:07)
--- NOTE | 2020-10-28 17:36 | PM.IMPN ---
Progress Note: A&P Assessment and Plan (1) Acute and chronic respiratory failure with hypoxia: Code(s): J96.21 - Acute and chronic respiratory failure with hypoxia Status: Acute Assessment and Plan: Patient has chronic hypoxia and is on oxygen with exertion due to COPD. Currently on 8 L high-flow nasal cannula. -patient has been saturating well, and given her COPD and chronic respiratory failure on home O2 2 L via nasal cannula, will wean FiO2 as tolerated to maintain O2 sats greater than 90-92% (2) Pneumonia due to COVID-19 virus: Code(s): U07.1 - COVID-19; J12.82 - Pneumonia due to coronavirus disease 2018 Status: Acute Assessment and Plan: Continue remdesivir and dexamethasone (started on 10/25) DAY 4 Tocilizumab given -continue contact, droplet, airborne isolation/precautions -continue to trend inflammatory markers. (3) Hypokalemia: Code(s): E87.6 - Hypokalemia Status: Acute Assessment and Plan: Resolved (4) Morbid obesity: Code(s): E66.01 - Morbid (severe) obesity due to excess calories Status: Acute Assessment and Plan: Patient with history of lap band which is still in place. Weight loss is encouraged. (5) Obstructive sleep apnea on CPAP: Code(s): G47.33 - Obstructive sleep apnea (adult) (pediatric); Z99.89 - Dependence on other enabling machines and devices Status: Acute Assessment and Plan: CPAP for night at the home settings (6) Chronic obstructive pulmonary disease: Code(s): J44.9 - Chronic obstructive pulmonary disease, unspecified Status: Acute Assessment and Plan: Continue bronchodilators (7) Hypertension: Code(s): I10 - Essential (primary) hypertension Status: Chronic Assessment and Plan: Blood pressures were reviewed and they are reasonably well controlled. Continue antihypertensives and monitor daily. Subjective Date/time seen: 10/28/20 17:36 Interval history: 64-year-old female with history of COPD, chronic respiratory failure, on home oxygen, GERD, hypercholesterolemia, essential hypertension, morbid obesity, obstructive sleep apnea on CPAP of 13 cm water pressure at home with increasing shortness of breath and positive COVID-19 test on 10/22/2020. Patient complained of increasing shortness of breath along with productive cough. EMS arrival to the house patient's O2 sats were in the 80s on her home oxygen. She denies any fevers or chills, chest pain, abdominal pain, nausea, vomiting. Patient did receive Dae & Dae COVID vaccine. She thinks she may have contracted from a was on a youth should she feel trip. Chest x-ray and chest CTA showed diffuse lung disease compatible COVID. No pulmonary embolism. 10/28 visit: Patient seen and examined. Patient is on 8 L high-flow oxygen via nasal cannula with adequate O2 sats. Patient has been tolerating her diet. She does drop her oxygen saturation with movement. No loss of sense of taste or smell. BREWSTER. No sob at rest. No chest pain. No gi/gu sx's. Review of Systems Review of Systems: All systems reviewed & are unremarkable except as noted in HPI and below Exam Narrative: General: Moderately ill-appearing , in no acute distress, pleasant female HEENT: Normocephalic, atraumatic. PERRL, Sclerae is clear. Moist oral mucosa. Neck: No jvd. Respiratory: Mildly tachypneic. Adequate air entry, diminished at bases, coarse breath sounds bilaterally. Cardiovascular: Regular rate and rhythm with S1-S2. Distant heart tones. Gastrointestinal: Abdomen is soft, morbidly obese, nontender, and nondistended with positive bowel sounds. Skin: Warm and dry. Extremities: No cyanosis, clubbing, or significant edema. Neurological: CN symmetric to inspection Psychiatric: Pleasant and cooperative with normal mood and affect. A/O x 4. Judgment and insight intact. Objective Data Vital Signs Vital
--- NOTE | 2020-10-28 19:35 | PC.NURSE ---
Daughter Myrna was called back and updated on the plan of care for her mother. All questions answered per Myrna. Will continue to monitor.
[2020-10-28] MEDS: SIMVASTATIN 20 MG TABLET 40 MG PO (21:08)
[2020-10-28] MEDS: REMDESIVIR 100 MG/NS 250 ML 100 MG/250 ML BAG 250 MG IVPB (21:09)
[2020-10-28] MEDS: PANTOPRAZOLE 40 MG TABLET PO (21:09)
[2020-10-29] VITALS (15 sets, daily range): BP systolic 132–146; BP diastolic 71–86; PULSE 78–98; RESP 14–21; TEMP 36.2–36.9; O2SAT 90–98
[2020-10-29] MEDS: IPRATROPIUM BR 0.02% INH SOLN 0.5 MG/2.5 ML VIAL INHALATION ×2 (02:12→19:55)
[2020-10-29] MEDS: ALBUTEROL SULFATE NEB 2.5 MG/0.5 ML INH 5 MG INHALATION ×2 (02:12→19:55)
[2020-10-29 07:30] LABS: Hematocrit 39.4 % (37.0-47.0); Hemoglobin 12.3 g/dL (12.0-15.0); Mean Corpuscular HGB Conc 31.2 g/dl (32-36); Mean Corpuscular Hemoglobin 25.3 pg (26-34); Mean Corpuscular Volume 81.1 fl (80-100); Mean Platelet Volume 9.6 fl (7.4-10.4); Platelet Count Result 452 k/mm3 (150-375); Red Blood Count 4.86 M/mm3 (4.2-5.4); Red Cell Distribution Width 15.3 % (11.5-14.5); White Blood Count 11.9 K/mm3 (4.5-10.0)
[2020-10-29 07:41] LABS: INR 1.1; Prothrombin Time 14.3 Seconds (11.1-14.7)
[2020-10-29 07:42] LABS: Alanine Aminotransferase 25 U/L (4-35); Albumin Level 2.7 g/dL (3.5-5.1); Alkaline Phosphatase 112 U/L (38-126); Anion Gap 6 mmol/L (8-16); Aspartate Amino Transferase 29 U/L (14-36); Bilirubin,Total 0.3 mg/dL (0.2-1.3); Blood Urea Nitrogen 22 mg/dL (7-17); Calcium 7.7 mg/dL (8.4-10.2); Carbon Dioxide 32 mmol/L (22-30); Chloride 97 mmol/L (98-107); Estimated CRCL calculation 113 ml/min; Estimated Glomerular Filt Rate > 60; Glucose 103 mg/dL (65-110); Potassium 3.6 mmol/L (3.4-5.0); Sodium 135 mmol/L (137-145)
[2020-10-29 07:44] LABS: D Dimer 1.08 ug/mL (<0.48)
[2020-10-29] MEDS: TOLTERODINE TARTRATE 2 MG TABLET PO ×2 (09:38→17:20)
[2020-10-29] MEDS: ENOXAPARIN 40 MG/0.4 ML SYRINGE SUB-Q ×2 (09:38→20:53)
[2020-10-29] MEDS: LOSARTAN POTASSIUM 100 MG TABLET PO (09:38)
[2020-10-29] MEDS: DULoxetine HCL 60 MG CAPSULE.DR PO (09:38)
[2020-10-29] MEDS: DEXAMETHASONE SOD PHOS INJ 4 MG/ML VIAL 6 MG IV PUSH (09:38)
--- NOTE | 2020-10-29 14:20 | PC.NURSE ---
This patient, Fay Che, was transferred to [facility] on 10/29/20 at 1420. Personal belongings sent with patient. Report given to SIMONA Garcia. Appropriate documentation sent with patient.
--- NOTE | 2020-10-29 14:20 | PC.NURSE ---
This patient, Fay Che, was received from IMU on 10/29/20 at 1440. Patient/family oriented to unit policies and routines
--- NOTE | 2020-10-29 16:17 | PM.IMPN ---
Progress Note: A&P Assessment and Plan (1) Acute and chronic respiratory failure with hypoxia: Code(s): J96.21 - Acute and chronic respiratory failure with hypoxia Status: Acute Assessment and Plan: 64-year-old female with history of COPD, chronic respiratory failure, on home oxygen, GERD, hypercholesterolemia, essential hypertension, morbid obesity, obstructive sleep apnea on CPAP of 13 cm water pressure at home with increasing shortness of breath and positive COVID-19 test on 10/22/2020. Patient complained of increasing shortness of breath along with productive cough. EMS arrival to the house patient's O2 sats were in the 80s on her home oxygen. She denies any fevers or chills, chest pain, abdominal pain, nausea, vomiting. Patient did receive Dae & Dae COVID vaccine. She thinks she may have contracted from a was on a youth should she feel trip. Chest x-ray and chest CTA showed diffuse lung disease compatible COVID. No pulmonary embolism. 10/28 visit: Patient seen and examined. Patient is on 8 L high-flow oxygen via nasal cannula with adequate O2 sats. Patient has been tolerating her diet. She does drop her oxygen saturation with movement. No loss of sense of taste or smell. BREWSTER. No sob at rest. No chest pain. No gi/gu sx's. 10/29 patient is treated with dexamethasone 10/26 06/30 and Remdesivir 10/26 06/25 and tomorrow patient will complete 5 day course, patient states feeling better not as short of breath as when she arrived, patient still remains high-flow oxygen 8 L, will continue to monitor, since patient is required high oxygen which should continue Remdesivir for another 5 days (2) Pneumonia due to COVID-19 virus: Code(s): U07.1 - COVID-19; J12.82 - Pneumonia due to coronavirus disease 2019 Status: Acute Assessment and Plan: Continue remdesivir and dexamethasone (started on 10/25) DAY 4 Tocilizumab given -continue contact, droplet, airborne isolation/precautions -continue to trend inflammatory markers. (3) Hypokalemia: Code(s): E87.6 - Hypokalemia Status: Acute Assessment and Plan: Resolved (4) Morbid obesity: Code(s): E66.01 - Morbid (severe) obesity due to excess calories Status: Acute Assessment and Plan: Patient with history of lap band which is still in place. Weight loss is encouraged. (5) Obstructive sleep apnea on CPAP: Code(s): G47.33 - Obstructive sleep apnea (adult) (pediatric); Z99.89 - Dependence on other enabling machines and devices Status: Acute Assessment and Plan: CPAP for night at the home settings (6) Chronic obstructive pulmonary disease: Code(s): J44.9 - Chronic obstructive pulmonary disease, unspecified Status: Acute Assessment and Plan: Continue bronchodilators (7) Hypertension: Code(s): I10 - Essential (primary) hypertension Status: Chronic Assessment and Plan: Blood pressures were reviewed and they are reasonably well controlled. Continue antihypertensives and monitor daily. Subjective Date/time seen: 10/29/20 16:17 Interval history: 64-year-old female with history of COPD, chronic respiratory failure, on home oxygen, GERD, hypercholesterolemia, essential hypertension, morbid obesity, obstructive sleep apnea on CPAP of 13 cm water pressure at home with increasing shortness of breath and positive COVID-19 test on 10/22/2020. Patient complained of increasing shortness of breath along with productive cough. EMS arrival to the house patient's O2 sats were in the 80s on her home oxygen. She denies any fevers or chills, chest pain, abdominal pain, nausea, vomiting. Patient did receive Dae & Dae COVID vaccine. She thinks she may have contracted from a was on a youth should she feel trip. Chest x-ray and chest CTA showed diffuse lung disease compatible COVID. No pulmonary embolism. 10/28 visit: Patient seen and e
[2020-10-29] MEDS: SIMVASTATIN 20 MG TABLET 40 MG PO (20:53)
[2020-10-29] MEDS: PANTOPRAZOLE 40 MG TABLET PO (20:53)
[2020-10-29] MEDS: REMDESIVIR 100 MG/NS 250 ML 100 MG/250 ML BAG 250 MG IVPB (22:01)
[2020-10-30] VITALS (17 sets, daily range): BP systolic 140–164; BP diastolic 61–77; PULSE 84–94; RESP 16–23; TEMP 35.8–36.7; O2SAT 91–96
[2020-10-30] MEDS: IPRATROPIUM BR 0.02% INH SOLN 0.5 MG/2.5 ML VIAL INHALATION ×4 (03:19→21:43)
[2020-10-30] MEDS: ALBUTEROL SULFATE NEB 2.5 MG/0.5 ML INH 5 MG INHALATION ×4 (03:19→21:43)
[2020-10-30 06:14] LABS: Hematocrit 43.2 % (37.0-47.0); Hemoglobin 13.3 g/dL (12.0-15.0); Mean Corpuscular HGB Conc 30.8 g/dl (32-36); Mean Corpuscular Hemoglobin 25.6 pg (26-34); Mean Corpuscular Volume 83.2 fl (80-100); Mean Platelet Volume 9.9 fl (7.4-10.4); Platelet Count Result 447 k/mm3 (150-375); Red Blood Count 5.19 M/mm3 (4.2-5.4); Red Cell Distribution Width 15.6 % (11.5-14.5); White Blood Count 13.7 K/mm3 (4.5-10.0)
[2020-10-30 06:30] LABS: Alanine Aminotransferase 25 U/L (4-35); Albumin Level 2.8 g/dL (3.5-5.1); Alkaline Phosphatase 107 U/L (38-126); Anion Gap 6 mmol/L (8-16); Aspartate Amino Transferase 26 U/L (14-36); Bilirubin,Total 0.4 mg/dL (0.2-1.3); Blood Urea Nitrogen 23 mg/dL (7-17); Carbon Dioxide 30 mmol/L (22-30); Chloride 102 mmol/L (98-107); Estimated CRCL calculation 113 ml/min; Estimated Glomerular Filt Rate > 60; Glucose 113 mg/dL (65-110); Potassium 4.2 mmol/L (3.4-5.0); Sodium 138 mmol/L (137-145)
[2020-10-30] MEDS: TOLTERODINE TARTRATE 2 MG TABLET PO ×2 (08:54→17:31)
[2020-10-30] MEDS: ENOXAPARIN 40 MG/0.4 ML SYRINGE SUB-Q ×2 (08:54→22:45)
[2020-10-30] MEDS: DEXAMETHASONE SOD PHOS INJ 4 MG/ML VIAL 6 MG IV PUSH (08:54)
[2020-10-30] MEDS: DULoxetine HCL 60 MG CAPSULE.DR PO (08:54)
[2020-10-30] MEDS: LOSARTAN POTASSIUM 100 MG TABLET PO (08:54)
--- NOTE | 2020-10-30 09:00 | PM.IMPN ---
Progress Note: A&P Assessment and Plan (1) Acute and chronic respiratory failure with hypoxia: Code(s): J96.21 - Acute and chronic respiratory failure with hypoxia Status: Acute Assessment and Plan: 64-year-old female with history of COPD, chronic respiratory failure, on home oxygen, GERD, hypercholesterolemia, essential hypertension, morbid obesity, obstructive sleep apnea on CPAP of 13 cm water pressure at home with increasing shortness of breath and positive COVID-19 test on 10/22/2020. Patient complained of increasing shortness of breath along with productive cough. EMS arrival to the house patient's O2 sats were in the 80s on her home oxygen. She denies any fevers or chills, chest pain, abdominal pain, nausea, vomiting. Patient did receive Dae & Dae COVID vaccine. She thinks she may have contracted from a was on a youth should she feel trip. Chest x-ray and chest CTA showed diffuse lung disease compatible COVID. No pulmonary embolism. 10/28 visit: Patient seen and examined. Patient is on 8 L high-flow oxygen via nasal cannula with adequate O2 sats. Patient has been tolerating her diet. She does drop her oxygen saturation with movement. No loss of sense of taste or smell. BREWSTER. No sob at rest. No chest pain. No gi/gu sx's. 10/29 patient is treated with dexamethasone 10/26 06/30 and Remdesivir 10/26 06/25 and tomorrow patient will complete 5 day course, patient states feeling better not as short of breath as when she arrived, patient still remains high-flow oxygen 8 L, will continue to monitor, since patient is required high oxygen which should continue Remdesivir for another 5 days 10/30 patient about the same heavy feeling a little better. She finished a course of remdesivir yesterday. Will increase for another 5 more days. Remains on high-flow oxygen 8 liters/minute echocardiogram reviewed.Echo with EF 60-65% grade 1 diastolic dysfunction mild tricuspid valve regurgitation mild pulmonary hypertension estimated pulmonary artery systolic pressure is 46 mm Hg. Continue on Decadron. (2) Pneumonia due to COVID-19 virus: Code(s): U07.1 - COVID-19; J12.82 - Pneumonia due to coronavirus disease 2019 Status: Acute Assessment and Plan: Continue remdesivir and dexamethasone (started on 10/25) DAY 4 Tocilizumab given -continue contact, droplet, airborne isolation/precautions -continue to trend inflammatory markers. (3) Hypokalemia: Code(s): E87.6 - Hypokalemia Status: Acute Assessment and Plan: Resolved (4) Morbid obesity: Code(s): E66.01 - Morbid (severe) obesity due to excess calories Status: Acute Assessment and Plan: Patient with history of lap band which is still in place. Weight loss is encouraged. (5) Obstructive sleep apnea on CPAP: Code(s): G47.33 - Obstructive sleep apnea (adult) (pediatric); Z99.89 - Dependence on other enabling machines and devices Status: Acute Assessment and Plan: CPAP for night at the home settings (6) Chronic obstructive pulmonary disease: Code(s): J44.9 - Chronic obstructive pulmonary disease, unspecified Status: Acute Assessment and Plan: Continue bronchodilators (7) Hypertension: Code(s): I10 - Essential (primary) hypertension Status: Chronic Assessment and Plan: Blood pressures were reviewed and they are reasonably well controlled. Continue antihypertensives and monitor daily. Additional Plan Code status: Full code Subjective Date/time seen: 10/30/20 09:00 Interval history: 64-year-old female with history of COPD, chronic respiratory failure, on home oxygen, GERD, hypercholesterolemia, essential hypertension, morbid obesity, obstructive sleep apnea on CPAP of 13 cm water pressure at home with increasing shortness of breath and positive COVID-19 test on 10/22/2020. Patient complained of increasing shortness of breath along with
[2020-10-30 09:58] LABS: Alanine Aminotransferase 25 U/L (4-35); Estimated CRCL calculation 113 ml/min; Estimated Glomerular Filt Rate > 60
[2020-10-30 10:01] LABS: INR 1.1; Prothrombin Time 13.6 Seconds (11.1-14.7)
[2020-10-30] MEDS: PANTOPRAZOLE 40 MG TABLET PO (22:46)
[2020-10-30] MEDS: SIMVASTATIN 20 MG TABLET 40 MG PO (22:46)
[2020-10-30] MEDS: REMDESIVIR 100 MG/NS 250 ML 100 MG/250 ML BAG 250 MG IVPB (22:47)
[2020-10-31] VITALS (16 sets, daily range): BP systolic 118–143; BP diastolic 48–72; PULSE 83–95; RESP 16–24; TEMP 35.9–36.8; O2SAT 94–98
[2020-10-31] MEDS: ALBUTEROL SULFATE NEB 2.5 MG/0.5 ML INH 5 MG INHALATION ×4 (03:57→21:32)
[2020-10-31] MEDS: IPRATROPIUM BR 0.02% INH SOLN 0.5 MG/2.5 ML VIAL INHALATION ×4 (03:57→21:33)
[2020-10-31 06:38] LABS: Hematocrit 42.8 % (37.0-47.0); Hemoglobin 12.9 g/dL (12.0-15.0); Mean Corpuscular HGB Conc 30.1 g/dl (32-36); Mean Corpuscular Volume 83.1 fl (80-100); Mean Platelet Volume 9.8 fl (7.4-10.4); Platelet Count Result 444 k/mm3 (150-375); Red Blood Count 5.15 M/mm3 (4.2-5.4); Red Cell Distribution Width 15.8 % (11.5-14.5); White Blood Count 13.9 K/mm3 (4.5-10.0)
[2020-10-31 06:45] LABS: Alanine Aminotransferase 26 U/L (4-35); Albumin Level 2.7 g/dL (3.5-5.1); Alkaline Phosphatase 99 U/L (38-126); Anion Gap 4 mmol/L (8-16); Aspartate Amino Transferase 27 U/L (14-36); Bilirubin,Total 0.5 mg/dL (0.2-1.3); Blood Urea Nitrogen 20 mg/dL (7-17); Carbon Dioxide 30 mmol/L (22-30); Chloride 102 mmol/L (98-107); Estimated CRCL calculation 130 ml/min; Estimated Glomerular Filt Rate > 60; Glucose 101 mg/dL (65-110); Lactate Dehydrogenase 807 U/L (313-618); Prothrombin Time 13.5 Seconds (11.1-14.7); Sodium 136 mmol/L (137-145)
[2020-10-31 06:48] LABS: D Dimer 1.34 ug/mL (<0.48)
[2020-10-31] MEDS: ENOXAPARIN 40 MG/0.4 ML SYRINGE SUB-Q ×2 (09:04→23:04)
[2020-10-31] MEDS: DEXAMETHASONE SOD PHOS INJ 4 MG/ML VIAL 6 MG IV PUSH (09:04)
[2020-10-31] MEDS: LOSARTAN POTASSIUM 100 MG TABLET PO (09:05)
[2020-10-31] MEDS: TOLTERODINE TARTRATE 2 MG TABLET PO ×2 (09:05→16:02)
[2020-10-31] MEDS: DULoxetine HCL 60 MG CAPSULE.DR PO (09:05)
--- NOTE | 2020-10-31 19:45 | PM.IMPN ---
Progress Note: A&P Assessment and Plan (1) Acute and chronic respiratory failure with hypoxia: Code(s): J96.21 - Acute and chronic respiratory failure with hypoxia Status: Acute Assessment and Plan: 64-year-old female with history of COPD, chronic respiratory failure, on home oxygen, GERD, hypercholesterolemia, essential hypertension, morbid obesity, obstructive sleep apnea on CPAP of 13 cm water pressure at home with increasing shortness of breath and positive COVID-19 test on 10/22/2020. Patient complained of increasing shortness of breath along with productive cough. EMS arrival to the house patient's O2 sats were in the 80s on her home oxygen. She denies any fevers or chills, chest pain, abdominal pain, nausea, vomiting. Patient did receive Dae & Dae COVID vaccine. She thinks she may have contracted from a was on a youth should she feel trip. Chest x-ray and chest CTA showed diffuse lung disease compatible COVID. No pulmonary embolism. 10/28 visit: Patient seen and examined. Patient is on 8 L high-flow oxygen via nasal cannula with adequate O2 sats. Patient has been tolerating her diet. She does drop her oxygen saturation with movement. No loss of sense of taste or smell. BREWSTER. No sob at rest. No chest pain. No gi/gu sx's. 10/29 patient is treated with dexamethasone 10/26 06/30 and Remdesivir 10/26 06/25 and tomorrow patient will complete 5 day course, patient states feeling better not as short of breath as when she arrived, patient still remains high-flow oxygen 8 L, will continue to monitor, since patient is required high oxygen which should continue Remdesivir for another 5 days 10/30 patient about the same heavy feeling a little better. She finished a course of remdesivir yesterday. Will increase for another 5 more days. Remains on high-flow oxygen 8 liters/minute echocardiogram reviewed.Echo with EF 60-65% grade 1 diastolic dysfunction mild tricuspid valve regurgitation mild pulmonary hypertension estimated pulmonary artery systolic pressure is 46 mm Hg. Continue on Decadron. 10/31/2020 Patient feels the same continues on 2nd 5 day course of remdesivir. She remains on high-flow. Suh catheter be adjusted monitor Is/Os continue supportive care (2) Pneumonia due to COVID-19 virus: Code(s): U07.1 - COVID-19; J12.82 - Pneumonia due to coronavirus disease 2019 Status: Acute Assessment and Plan: Continue remdesivir and dexamethasone (started on 10/25) DAY 6 Tocilizumab given -continue contact, droplet, airborne isolation/precautions -continue to trend inflammatory markers. (3) Hypokalemia: Code(s): E87.6 - Hypokalemia Status: Acute Assessment and Plan: Resolved (4) Morbid obesity: Code(s): E66.01 - Morbid (severe) obesity due to excess calories Status: Acute Assessment and Plan: Patient with history of lap band which is still in place. Weight loss is encouraged. (5) Obstructive sleep apnea on CPAP: Code(s): G47.33 - Obstructive sleep apnea (adult) (pediatric); Z99.89 - Dependence on other enabling machines and devices Status: Acute Assessment and Plan: CPAP for night at the home settings (6) Chronic obstructive pulmonary disease: Code(s): J44.9 - Chronic obstructive pulmonary disease, unspecified Status: Acute Assessment and Plan: Continue bronchodilators (7) Hypertension: Code(s): I10 - Essential (primary) hypertension Status: Chronic Assessment and Plan: Blood pressures were reviewed and they are reasonably well controlled. Continue antihypertensives and monitor daily. Additional Plan Code status: Full code Subjective Date/time seen: 10/31/20 19:45 Super morbid obese patient now requiring 5 L she is nonambulatory lying in her bed. Strict bed with Suh catheter in position. She states that this is hurting her. RN advised to bladder scan patient a
[2020-10-31] MEDS: REMDESIVIR 100 MG/NS 250 ML 100 MG/250 ML BAG 250 MG IVPB (23:02)
[2020-10-31] MEDS: PANTOPRAZOLE 40 MG TABLET PO (23:04)
[2020-10-31] MEDS: SIMVASTATIN 20 MG TABLET 40 MG PO (23:05)
[2020-11-01] VITALS (15 sets, daily range): BP systolic 111–141; BP diastolic 45–77; PULSE 82–104; RESP 18–20; TEMP 35.8–37; O2SAT 93–98
[2020-11-01] MEDS: ALBUTEROL SULFATE NEB 2.5 MG/0.5 ML INH 5 MG INHALATION ×4 (02:40→22:37)
[2020-11-01] MEDS: IPRATROPIUM BR 0.02% INH SOLN 0.5 MG/2.5 ML VIAL INHALATION ×4 (02:41→22:38)
[2020-11-01 07:08] LABS: Hematocrit 43.8 % (37.0-47.0); Hemoglobin 13.3 g/dL (12.0-15.0); Mean Corpuscular HGB Conc 30.4 g/dl (32-36); Mean Corpuscular Hemoglobin 25.3 pg (26-34); Mean Corpuscular Volume 83.4 fl (80-100); Platelet Count Result 415 k/mm3 (150-375); Red Blood Count 5.25 M/mm3 (4.2-5.4); Red Cell Distribution Width 16.4 % (11.5-14.5); White Blood Count 14.2 K/mm3 (4.5-10.0)
[2020-11-01 07:25] LABS: Alanine Aminotransferase 28 U/L (4-35); Albumin Level 2.7 g/dL (3.5-5.1); Alkaline Phosphatase 92 U/L (38-126); Anion Gap 8 mmol/L (8-16); Aspartate Amino Transferase 29 U/L (14-36); Bilirubin,Total 0.3 mg/dL (0.2-1.3); Blood Urea Nitrogen 22 mg/dL (7-17); Calcium 8.2 mg/dL (8.4-10.2); Carbon Dioxide 26 mmol/L (22-30); Chloride 99 mmol/L (98-107); Estimated CRCL calculation 130 ml/min; Estimated Glomerular Filt Rate > 60; Glucose 105 mg/dL (65-110); Potassium 4.4 mmol/L (3.4-5.0); Sodium 133 mmol/L (137-145)
[2020-11-01 07:40] LABS: INR 1.1; Prothrombin Time 13.7 Seconds (11.1-14.7)
--- NOTE | 2020-11-01 08:26 | PM.IMPN ---
Progress Note: A&P Assessment and Plan (1) Acute and chronic respiratory failure with hypoxia: Code(s): J96.21 - Acute and chronic respiratory failure with hypoxia Status: Acute Assessment and Plan: 64-year-old female with history of COPD, chronic respiratory failure, on home oxygen, GERD, hypercholesterolemia, essential hypertension, morbid obesity, obstructive sleep apnea on CPAP of 13 cm water pressure at home with increasing shortness of breath and positive COVID-19 test on 10/22/2020. Patient complained of increasing shortness of breath along with productive cough. EMS arrival to the house patient's O2 sats were in the 80s on her home oxygen. She denies any fevers or chills, chest pain, abdominal pain, nausea, vomiting. Patient did receive Dae & Dae COVID vaccine. She thinks she may have contracted from a was on a youth should she feel trip. Chest x-ray and chest CTA showed diffuse lung disease compatible COVID. No pulmonary embolism. 10/28 visit: Patient seen and examined. Patient is on 8 L high-flow oxygen via nasal cannula with adequate O2 sats. Patient has been tolerating her diet. She does drop her oxygen saturation with movement. No loss of sense of taste or smell. BREWSTER. No sob at rest. No chest pain. No gi/gu sx's. 10/29 patient is treated with dexamethasone 10/26 06/30 and Remdesivir 10/26 06/25 and tomorrow patient will complete 5 day course, patient states feeling better not as short of breath as when she arrived, patient still remains high-flow oxygen 8 L, will continue to monitor, since patient is required high oxygen which should continue Remdesivir for another 5 days 10/30 patient about the same heavy feeling a little better. She finished a course of remdesivir yesterday. Will increase for another 5 more days. Remains on high-flow oxygen 8 liters/minute echocardiogram reviewed.Echo with EF 60-65% grade 1 diastolic dysfunction mild tricuspid valve regurgitation mild pulmonary hypertension estimated pulmonary artery systolic pressure is 46 mm Hg. Continue on Decadron. 10/31/2020 Patient feels the same continues on 2nd 5 day course of remdesivir. She remains on high-flow. Suh catheter be adjusted monitor Is/Os continue supportive care 11/01/2020 Patient appears to be improving somewhat through clinical observation and laboratory findings this morning she remains on high-flow. Positive fluid balance, Lasix ordered continue current care. prognosis remains guarded (2) Pneumonia due to COVID-19 virus: Code(s): U07.1 - COVID-19; J12.82 - Pneumonia due to coronavirus disease 2019 Status: Acute Assessment and Plan: Continue remdesivir and dexamethasone (started on 10/25) DAY 7 Tocilizumab given -continue contact, droplet, airborne isolation/precautions -continue to trend inflammatory markers. (3) Hypokalemia: Code(s): E87.6 - Hypokalemia Status: Acute Assessment and Plan: Resolved (4) Morbid obesity: Code(s): E66.01 - Morbid (severe) obesity due to excess calories Status: Acute Assessment and Plan: Patient with history of lap band which is still in place. Weight loss is encouraged. (5) Obstructive sleep apnea on CPAP: Code(s): G47.33 - Obstructive sleep apnea (adult) (pediatric); Z99.89 - Dependence on other enabling machines and devices Status: Acute Assessment and Plan: CPAP for night at the home settings (6) Chronic obstructive pulmonary disease: Code(s): J44.9 - Chronic obstructive pulmonary disease, unspecified Status: Acute Assessment and Plan: Continue bronchodilators (7) Hypertension: Code(s): I10 - Essential (primary) hypertension Status: Chronic Assessment and Plan: Blood pressures were reviewed and they are reasonably well controlled. Continue antihypertensives and monitor daily. Additional Plan Code status: Full code Subjective
[2020-11-01] MEDS: FUROSEMIDE INJ 40 MG/4 ML VIAL IV PUSH (10:20)
[2020-11-01] MEDS: ENOXAPARIN 40 MG/0.4 ML SYRINGE SUB-Q ×2 (10:20→23:03)
[2020-11-01] MEDS: TOLTERODINE TARTRATE 2 MG TABLET PO ×2 (10:21→17:55)
[2020-11-01] MEDS: LOSARTAN POTASSIUM 100 MG TABLET PO (10:22)
[2020-11-01] MEDS: DULoxetine HCL 60 MG CAPSULE.DR PO (10:22)
[2020-11-01] MEDS: DEXAMETHASONE SOD PHOS INJ 4 MG/ML VIAL 6 MG IV PUSH (10:22)
[2020-11-01] MEDS: SIMVASTATIN 20 MG TABLET 40 MG PO (23:03)
[2020-11-01] MEDS: REMDESIVIR 100 MG/NS 250 ML 100 MG/250 ML BAG 250 MG IVPB (23:03)
[2020-11-01] MEDS: PANTOPRAZOLE 40 MG TABLET PO (23:04)
[2020-11-02] VITALS (17 sets, daily range): BP systolic 113–158; BP diastolic 54–87; PULSE 85–97; RESP 19–24; TEMP 35.7–37.2; O2SAT 92–100
[2020-11-02] MEDS: ALBUTEROL SULFATE NEB 2.5 MG/0.5 ML INH 5 MG INHALATION ×4 (04:02→22:16)
[2020-11-02] MEDS: IPRATROPIUM BR 0.02% INH SOLN 0.5 MG/2.5 ML VIAL INHALATION ×4 (04:02→22:16)
[2020-11-02 06:27] LABS: Hematocrit 43.2 % (37.0-47.0); Hemoglobin 13.1 g/dL (12.0-15.0); Mean Corpuscular HGB Conc 30.3 g/dl (32-36); Mean Corpuscular Hemoglobin 25.2 pg (26-34); Mean Corpuscular Volume 83.2 fl (80-100); Mean Platelet Volume 9.9 fl (7.4-10.4); Platelet Count Result 429 k/mm3 (150-375); Red Blood Count 5.19 M/mm3 (4.2-5.4); Red Cell Distribution Width 16.3 % (11.5-14.5)
[2020-11-02 06:41] LABS: Prothrombin Time 13.1 Seconds (11.1-14.7)
[2020-11-02 06:45] LABS: Alanine Aminotransferase 33 U/L (4-35); Albumin Level 2.8 g/dL (3.5-5.1); Alkaline Phosphatase 89 U/L (38-126); Anion Gap 5 mmol/L (8-16); Aspartate Amino Transferase 29 U/L (14-36); Bilirubin,Total 0.4 mg/dL (0.2-1.3); Blood Urea Nitrogen 22 mg/dL (7-17); Calcium 8.1 mg/dL (8.4-10.2); Carbon Dioxide 31 mmol/L (22-30); Chloride 98 mmol/L (98-107); Estimated CRCL calculation 130 ml/min; Estimated Glomerular Filt Rate > 60; Glucose 103 mg/dL (65-110); Potassium 4.3 mmol/L (3.4-5.0); Sodium 134 mmol/L (137-145)
[2020-11-02] MEDS: ENOXAPARIN 40 MG/0.4 ML SYRINGE SUB-Q ×2 (09:20→20:55)
[2020-11-02] MEDS: DULoxetine HCL 60 MG CAPSULE.DR PO (09:20)
[2020-11-02] MEDS: LOSARTAN POTASSIUM 100 MG TABLET PO (09:20)
[2020-11-02] MEDS: DEXAMETHASONE SOD PHOS INJ 4 MG/ML VIAL 6 MG IV PUSH (09:20)
[2020-11-02] MEDS: TOLTERODINE TARTRATE 2 MG TABLET PO ×2 (09:20→16:13)
--- NOTE | 2020-11-02 11:14 | PCNWS ---
Weekly nutritional screen. Patient is tolerating current diet with adequate intake. No weight loss reported. No nutritional needs at this time.
--- NOTE | 2020-11-02 15:10 | PCOTNOTE ---
Patient with Respiratory therapy when attempted to see for OT. Will continue plan of care tomorrow, 11/03/20.
--- NOTE | 2020-11-02 15:19 | PM.IMPN ---
Progress Note: A&P Assessment and Plan (1) Acute and chronic respiratory failure with hypoxia: Code(s): J96.21 - Acute and chronic respiratory failure with hypoxia Status: Acute Assessment and Plan: 64-year-old female with history of COPD, chronic respiratory failure, on home oxygen, GERD, hypercholesterolemia, essential hypertension, morbid obesity, obstructive sleep apnea on CPAP of 13 cm water pressure at home with increasing shortness of breath and positive COVID-19 test on 10/22/2020. Patient complained of increasing shortness of breath along with productive cough. EMS arrival to the house patient's O2 sats were in the 80s on her home oxygen. She denies any fevers or chills, chest pain, abdominal pain, nausea, vomiting. Patient did receive Dae & Dae COVID vaccine. She thinks she may have contracted from a was on a youth should she feel trip. Chest x-ray and chest CTA showed diffuse lung disease compatible COVID. No pulmonary embolism. 10/28 visit: Patient seen and examined. Patient is on 8 L high-flow oxygen via nasal cannula with adequate O2 sats. Patient has been tolerating her diet. She does drop her oxygen saturation with movement. No loss of sense of taste or smell. BREWSTER. No sob at rest. No chest pain. No gi/gu sx's. 10/29 patient is treated with dexamethasone 10/26 06/30 and Remdesivir 10/26 06/25 and tomorrow patient will complete 5 day course, patient states feeling better not as short of breath as when she arrived, patient still remains high-flow oxygen 8 L, will continue to monitor, since patient is required high oxygen which should continue Remdesivir for another 5 days 10/30 patient about the same heavy feeling a little better. She finished a course of remdesivir yesterday. Will increase for another 5 more days. Remains on high-flow oxygen 8 liters/minute echocardiogram reviewed.Echo with EF 60-65% grade 1 diastolic dysfunction mild tricuspid valve regurgitation mild pulmonary hypertension estimated pulmonary artery systolic pressure is 46 mm Hg. Continue on Decadron. 10/31/2020 Patient feels the same continues on 2nd 5 day course of remdesivir. She remains on high-flow. Suh catheter be adjusted monitor Is/Os continue supportive care 11/01/2020 Patient appears to be improving somewhat through clinical observation and laboratory findings this morning she remains on high-flow. Positive fluid balance, Lasix ordered continue current care. prognosis remains guarded 11/02/2020 On high flow 6L; continues with 2nd course of remdesivir, denies any SOB, CP or cough (2) Pneumonia due to COVID-19 virus: Code(s): U07.1 - COVID-19; J12.82 - Pneumonia due to coronavirus disease 2019 Status: Acute Assessment and Plan: Continue remdesivir and dexamethasone (started on 10/25) DAY 8 Tocilizumab given continue contact, droplet, airborne isolation/precautions continue to trend inflammatory markers high flow O2 at 6L (3) Hypokalemia: Code(s): E87.6 - Hypokalemia Status: Acute Assessment and Plan: Resolved (4) Morbid obesity: Code(s): E66.01 - Morbid (severe) obesity due to excess calories Status: Acute Assessment and Plan: Patient with history of lap band which is still in place. Weight loss is encouraged. (5) Obstructive sleep apnea on CPAP: Code(s): G47.33 - Obstructive sleep apnea (adult) (pediatric); Z99.89 - Dependence on other enabling machines and devices Status: Acute Assessment and Plan: CPAP for night at the home settings (6) Chronic obstructive pulmonary disease: Code(s): J44.9 - Chronic obstructive pulmonary disease, unspecified Status: Acute Assessment and Plan: Continue bronchodilators (7) Hypertension: Code(s): I10 - Essential (primary) hypertension Status: Chronic Assessment and Plan: Blood pressures stable Continue antihypertensives Monit
[2020-11-02] MEDS: REMDESIVIR 100 MG/NS 250 ML 100 MG/250 ML BAG 250 MG IVPB (20:56)
[2020-11-02] MEDS: PANTOPRAZOLE 40 MG TABLET PO (20:56)
[2020-11-02] MEDS: SIMVASTATIN 20 MG TABLET 40 MG PO (20:56)
[2020-11-03] VITALS (14 sets, daily range): BP systolic 121–155; BP diastolic 52–78; PULSE 71–105; RESP 18–24; TEMP 36.2–36.6; O2SAT 93–100
[2020-11-03] MEDS: ALBUTEROL SULFATE NEB 2.5 MG/0.5 ML INH 5 MG INHALATION ×4 (04:15→21:59)
[2020-11-03] MEDS: IPRATROPIUM BR 0.02% INH SOLN 0.5 MG/2.5 ML VIAL INHALATION ×4 (04:15→22:00)
[2020-11-03 08:15] LABS: Hematocrit 39.8 % (37.0-47.0); Hemoglobin 12.5 g/dL (12.0-15.0); Mean Corpuscular HGB Conc 31.4 g/dl (32-36); Mean Corpuscular Hemoglobin 25.5 pg (26-34); Mean Corpuscular Volume 81.2 fl (80-100); Mean Platelet Volume 10.3 fl (7.4-10.4); Platelet Count Result 397 k/mm3 (150-375); Red Cell Distribution Width 16.3 % (11.5-14.5); White Blood Count 13.5 K/mm3 (4.5-10.0)
[2020-11-03 08:30] LABS: Alanine Aminotransferase 38 U/L (4-35); Albumin Level 2.8 g/dL (3.5-5.1); Alkaline Phosphatase 77 U/L (38-126); Anion Gap 5 mmol/L (8-16); Aspartate Amino Transferase 28 U/L (14-36); Bilirubin,Total 0.4 mg/dL (0.2-1.3); Blood Urea Nitrogen 23 mg/dL (7-17); Calcium 8.6 mg/dL (8.4-10.2); Carbon Dioxide 28 mmol/L (22-30); Chloride 99 mmol/L (98-107); Estimated CRCL calculation 130 ml/min; Estimated Glomerular Filt Rate > 60; Glucose 96 mg/dL (65-110); Potassium 4.2 mmol/L (3.4-5.0); Sodium 132 mmol/L (137-145)
[2020-11-03 08:56] LABS: Prothrombin Time 13.4 Seconds (11.1-14.7)
[2020-11-03] MEDS: DEXAMETHASONE SOD PHOS INJ 4 MG/ML VIAL 6 MG IV PUSH (09:33)
[2020-11-03] MEDS: ENOXAPARIN 40 MG/0.4 ML SYRINGE SUB-Q ×2 (09:34→22:04)
[2020-11-03] MEDS: LOSARTAN POTASSIUM 100 MG TABLET PO (09:34)
[2020-11-03] MEDS: DULoxetine HCL 60 MG CAPSULE.DR PO (09:34)
[2020-11-03] MEDS: TOLTERODINE TARTRATE 2 MG TABLET PO ×2 (09:34→17:49)
--- NOTE | 2020-11-03 16:24 | P.PNIM_ITS ---
Progress Note: A&P Assessment and Plan (1) Acute and chronic respiratory failure with hypoxia: Code(s): J96.21 - Acute and chronic respiratory failure with hypoxia Status: Acute Assessment and Plan: 64-year-old female with history of COPD, chronic respiratory failure, on home oxygen, GERD, hypercholesterolemia, essential hypertension, morbid obesity, obstructive sleep apnea on CPAP of 13 cm water pressure at home with increasing shortness of breath and positive COVID-19 test on 10/22/2020. Patient complained of increasing shortness of breath along with productive cough. EMS arrival to the house patient's O2 sats were in the 80s on her home oxygen. She denies any fevers or chills, chest pain, abdominal pain, nausea, vomiting. Patient did receive Dae & Dae COVID vaccine. She thinks she may have contracted from a was on a youth should she feel trip. Chest x-ray and chest CTA showed diffuse lung disease compatible COVID. No pulmonary embolism. 10/28 visit: Patient seen and examined. Patient is on 8 L high-flow oxygen via nasal cannula with adequate O2 sats. Patient has been tolerating her diet. She does drop her oxygen saturation with movement. No loss of sense of taste or smell. BREWSTER. No sob at rest. No chest pain. No gi/gu sx's. 10/29 patient is treated with dexamethasone 10/26 06/30 and Remdesivir 10/26 06/25 and tomorrow patient will complete 5 day course, patient states feeling better not as short of breath as when she arrived, patient still remains high-flow oxygen 8 L, will continue to monitor, since patient is required high oxygen which should continue Remdesivir for another 5 days 10/30 patient about the same heavy feeling a little better. She finished a course of remdesivir yesterday. Will increase for another 5 more days. Remains on high-flow oxygen 8 liters/minute echocardiogram reviewed.Echo with EF 60-65% grade 1 diastolic dysfunction mild tricuspid valve regurgitation mild pulmonary hypertension estimated pulmonary artery systolic pressure is 46 mm Hg. Continue on Decadron. 10/31/2020 Patient feels the same continues on 2nd 5 day course of remdesivir. She remains on high-flow. Suh catheter be adjusted monitor Is/Os continue supportive care 11/01/2020 Patient appears to be improving somewhat through clinical observation and laboratory findings this morning she remains on high-flow. Positive fluid balance, Lasix ordered continue current care. prognosis remains guarded 11/02/2020 On high flow 6L; continues with 2nd course of remdesivir, denies any SOB, CP or cough (2) Pneumonia due to COVID-19 virus: Code(s): U07.1 - COVID-19; J12.82 - Pneumonia due to coronavirus disease 2019 Status: Acute Assessment and Plan: Continue remdesivir and dexamethasone (started on 10/25) DAY 9 Tocilizumab given continue contact, droplet, airborne isolation/precautions continue to trend inflammatory markers high flow O2 at 4L (3) Hypokalemia: Code(s): E87.6 - Hypokalemia Status: Acute Assessment and Plan: Resolved (4) Morbid obesity: Code(s): E66.01 - Morbid (severe) obesity due to excess calories Status: Acute Assessment and Plan: Patient with history of lap band which is still in place. Weight loss is encouraged. (5) Obstructive sleep apnea on CPAP: Code(s): G47.33 - Obstructive sleep apnea (adult) (pediatric); Z99.89 - Dependence on other enabling machines and devices Status: Acute Assessment and Plan: CPAP for night at the home settings (6) Chronic obstructive pulmonary disease:
[2020-11-03] MEDS: PANTOPRAZOLE 40 MG TABLET PO (22:04)
[2020-11-03] MEDS: SIMVASTATIN 20 MG TABLET 40 MG PO (22:04)
[2020-11-03] MEDS: REMDESIVIR 100 MG/NS 250 ML 100 MG/250 ML BAG 250 MG IVPB (22:06)
[2020-11-04] VITALS (11 sets, daily range): BP systolic 112–146; BP diastolic 53–77; PULSE 67–100; RESP 18–22; TEMP 36.1–37.1; O2SAT 92–99
[2020-11-04] MEDS: IPRATROPIUM BR 0.02% INH SOLN 0.5 MG/2.5 ML VIAL INHALATION ×3 (02:45→23:15)
[2020-11-04] MEDS: ALBUTEROL SULFATE NEB 2.5 MG/0.5 ML INH 5 MG INHALATION ×3 (06:11→23:15)
[2020-11-04 06:34] LABS: Hematocrit 40.7 % (37.0-47.0); Hemoglobin 12.8 g/dL (12.0-15.0); Mean Corpuscular HGB Conc 31.4 g/dl (32-36); Mean Corpuscular Hemoglobin 25.5 pg (26-34); Mean Corpuscular Volume 81.1 fl (80-100); Mean Platelet Volume 10.1 fl (7.4-10.4); Platelet Count Result 383 k/mm3 (150-375); Red Blood Count 5.02 M/mm3 (4.2-5.4); Red Cell Distribution Width 16.4 % (11.5-14.5); White Blood Count 12.7 K/mm3 (4.5-10.0)
[2020-11-04 06:45] LABS: Alanine Aminotransferase 40 U/L (4-35); Albumin Level 2.9 g/dL (3.5-5.1); Alkaline Phosphatase 75 U/L (38-126); Anion Gap 3 mmol/L (8-16); Aspartate Amino Transferase 30 U/L (14-36); Bilirubin,Total 0.5 mg/dL (0.2-1.3); Blood Urea Nitrogen 21 mg/dL (7-17); Calcium 8.6 mg/dL (8.4-10.2); Carbon Dioxide 26 mmol/L (22-30); Chloride 101 mmol/L (98-107); Estimated CRCL calculation 153 ml/min; Estimated Glomerular Filt Rate > 60; Glucose 105 mg/dL (65-110); Potassium 4.6 mmol/L (3.4-5.0); Sodium 130 mmol/L (137-145)
[2020-11-04] MEDS: DEXAMETHASONE SOD PHOS INJ 4 MG/ML VIAL 6 MG IV PUSH (10:04)
[2020-11-04] MEDS: TOLTERODINE TARTRATE 2 MG TABLET PO ×2 (10:05→18:03)
[2020-11-04] MEDS: DULoxetine HCL 60 MG CAPSULE.DR PO (10:06)
[2020-11-04] MEDS: LOSARTAN POTASSIUM 100 MG TABLET PO (10:06)
[2020-11-04] MEDS: ENOXAPARIN 40 MG/0.4 ML SYRINGE SUB-Q ×2 (10:06→20:49)
--- NOTE | 2020-11-04 11:41 | PCRCNOTE ---
Window of time for administration has passed. See next scheduled administration.
--- NOTE | 2020-11-04 15:52 | PM.IMPN ---
Progress Note: A&P Assessment and Plan (1) Acute and chronic respiratory failure with hypoxia: Code(s): J96.21 - Acute and chronic respiratory failure with hypoxia Status: Acute Assessment and Plan: 64-year-old female with history of COPD, chronic respiratory failure, on home oxygen, GERD, hypercholesterolemia, essential hypertension, morbid obesity, obstructive sleep apnea on CPAP of 13 cm water pressure at home with increasing shortness of breath and positive COVID-19 test on 10/22/2020. Patient complained of increasing shortness of breath along with productive cough. EMS arrival to the house patient's O2 sats were in the 80s on her home oxygen. She denies any fevers or chills, chest pain, abdominal pain, nausea, vomiting. Patient did receive Dae & Dae COVID vaccine. She thinks she may have contracted from a was on a youth should she feel trip. Chest x-ray and chest CTA showed diffuse lung disease compatible COVID. No pulmonary embolism. 10/28 visit: Patient seen and examined. Patient is on 8 L high-flow oxygen via nasal cannula with adequate O2 sats. Patient has been tolerating her diet. She does drop her oxygen saturation with movement. No loss of sense of taste or smell. BREWSTER. No sob at rest. No chest pain. No gi/gu sx's. 10/29 patient is treated with dexamethasone 10/26 06/30 and Remdesivir 10/26 06/25 and tomorrow patient will complete 5 day course, patient states feeling better not as short of breath as when she arrived, patient still remains high-flow oxygen 8 L, will continue to monitor, since patient is required high oxygen which should continue Remdesivir for another 5 days 10/30 patient about the same heavy feeling a little better. She finished a course of remdesivir yesterday. Will increase for another 5 more days. Remains on high-flow oxygen 8 liters/minute echocardiogram reviewed.Echo with EF 60-65% grade 1 diastolic dysfunction mild tricuspid valve regurgitation mild pulmonary hypertension estimated pulmonary artery systolic pressure is 46 mm Hg. Continue on Decadron. 10/31/2020 Patient feels the same continues on 2nd 5 day course of remdesivir. She remains on high-flow. Suh catheter be adjusted monitor Is/Os continue supportive care 11/01/2020 Patient appears to be improving somewhat through clinical observation and laboratory findings this morning she remains on high-flow. Positive fluid balance, Lasix ordered continue current care. prognosis remains guarded 11/02/2020 On high flow 6L; continues with 2nd course of remdesivir, denies any SOB, CP or cough (2) Pneumonia due to COVID-19 virus: Code(s): U07.1 - COVID-19; J12.82 - Pneumonia due to coronavirus disease 2019 Status: Acute Assessment and Plan: Continue remdesivir and dexamethasone (started on 10/25) DAY 10 Tocilizumab given continue contact, droplet, airborne isolation/precautions continue to trend inflammatory markers NC 2L Home O2 eval for possible d/c tomorrow (3) Hypokalemia: Code(s): E87.6 - Hypokalemia Status: Acute Assessment and Plan: Resolved (4) Morbid obesity: Code(s): E66.01 - Morbid (severe) obesity due to excess calories Status: Acute Assessment and Plan: Patient with history of lap band which is still in place. Weight loss is encouraged. (5) Obstructive sleep apnea on CPAP: Code(s): G47.33 - Obstructive sleep apnea (adult) (pediatric); Z99.89 - Dependence on other enabling machines and devices Status: Acute Assessment and Plan: CPAP for night at the home settings (6) Chronic obstructive pulmonary disease: Code(s): J44.9 - Chronic obstructive pulmonary disease, unspecified Status: Acute Assessment and Plan: Continue bronchodilators (7) Hypertension: Code(s): I10 - Essential (primary) hypertension Status: Chronic Assessment and Plan: Blood pressures stable Continue a
[2020-11-04] MEDS: PANTOPRAZOLE 40 MG TABLET PO (20:49)
[2020-11-04] MEDS: SIMVASTATIN 20 MG TABLET 40 MG PO (20:49)
[2020-11-05] VITALS (9 sets, daily range): BP systolic 117–173; BP diastolic 41–88; PULSE 81–109; RESP 16–20; TEMP 36.1–36.8; O2SAT 87–95
[2020-11-05 07:28] LABS: Hematocrit 41.8 % (37.0-47.0); Hemoglobin 12.6 g/dL (12.0-15.0); Mean Corpuscular HGB Conc 30.1 g/dl (32-36); Mean Corpuscular Hemoglobin 25.4 pg (26-34); Mean Corpuscular Volume 84.1 fl (80-100); Mean Platelet Volume 11.1 fl (7.4-10.4); Platelet Count Result 395 k/mm3 (150-375); Red Blood Count 4.97 M/mm3 (4.2-5.4); Red Cell Distribution Width 16.7 % (11.5-14.5); White Blood Count 13.4 K/mm3 (4.5-10.0)
[2020-11-05] MEDS: IPRATROPIUM BR 0.02% INH SOLN 0.5 MG/2.5 ML VIAL INHALATION (09:36)
[2020-11-05] MEDS: ALBUTEROL SULFATE NEB 2.5 MG/0.5 ML INH 5 MG INHALATION (09:36)
[2020-11-05] MEDS: ENOXAPARIN 40 MG/0.4 ML SYRINGE SUB-Q (09:37)
[2020-11-05] MEDS: LOSARTAN POTASSIUM 100 MG TABLET PO (09:37)
[2020-11-05] MEDS: DULoxetine HCL 60 MG CAPSULE.DR PO (09:37)
[2020-11-05] MEDS: TOLTERODINE TARTRATE 2 MG TABLET PO (09:38)
--- NOTE | 2020-11-05 11:11 | HOMEO2EVAL ---
Evaluation was performed at [facility] Home Oxygen Evaluation RC: Home Oxygen (O2) Evaluation Start: 11/04/20 15:57 Freq: ONCE Status: Active Protocol: RPE Activity Type Activity Date Activity User E-Sign Co-Sign Detail Recorded Client Recorded Date Recorded By Document 11/05/20 10:40 KRM [email or web address] 11/05/20 11:11 KRM Document 11/05/20 10:42 KRM [email or web address] 11/05/20 11:11 KRM Document 11/05/20 10:45 KRM [email or web address] 11/05/20 11:11 KRM 11/05/20 11/05/20 11/05/20 10:40 10:42 10:45 Home O2 Evaluation Test Phase Resting Resting Resting Oxygen Delivery Room Air Nasal Cannula Nasal Cannula Oxygen Flow Rate (L/min) 1 2 Pulse Oximetry (90-100 %) 87 L 89 L 90 Pulse Rate (60-100 beats/min) 90 91 90 Home Oxygen Evaluation Comments PT. DOES NOT AMBULATE. REQUIRES 2LPM AT REST. Treatment Charges O2 Evaluation - Inpatient
--- NOTE | 2020-11-05 11:11 | PCRTNOTE ---
HOME O2 EVALUATION COMPLETED. PT. CURRENT HOME O2 SETTING OF 2LPM CORRECT. NO CHANGES NEEDED AT THIS TIME. PROVIDER AWARE. PT. HAS OXYGEN THROUGH [facility]. FAMILY WILL BRING TANK TO GET HER HOME.
--- NOTE | 2020-11-05 15:29 | PCPTNOTE ---
Patient declined PT due to anticipated discharge.
[2020-11-05 15:31] LABS: Alanine Aminotransferase 47 U/L (4-35); Albumin Level 3.3 g/dL (3.5-5.1); Alkaline Phosphatase 81 U/L (38-126); Anion Gap 11 mmol/L (8-16); Aspartate Amino Transferase 36 U/L (14-36); Bilirubin,Total 0.4 mg/dL (0.2-1.3); Blood Urea Nitrogen 22 mg/dL (7-17); Calcium 8.8 mg/dL (8.4-10.2); Carbon Dioxide 20 mmol/L (22-30); Chloride 103 mmol/L (98-107); Estimated CRCL calculation 113 ml/min; Estimated Glomerular Filt Rate > 60; Glucose 102 mg/dL (65-110); Potassium 4.8 mmol/L (3.4-5.0); Sodium 134 mmol/L (137-145)
--- NOTE | 2020-11-05 15:55 | PM.DS ---
DS: Admitting Diagnosis Admitting Diagnosis Shortness of breath DS: Discharge Diagnosis Discharge Diagnosis (1) Acute and chronic respiratory failure with hypoxia: Code(s): J96.21 - Acute and chronic respiratory failure with hypoxia Status: Acute Assessment and Plan: 64-year-old female with history of COPD, chronic respiratory failure, on home oxygen, GERD, hypercholesterolemia, essential hyperten (2) Pneumonia due to COVID-19 virus: Code(s): U07.1 - COVID-19; J12.82 - Pneumonia due to coronavirus disease 2018 Status: Acute Assessment and Plan: Continue remdesivir and dexamethasone (started on 10/25) DAY 10 Tocilizumab given continue contact, droplet, airborne isolation/precautions continue to trend inflammatory markers NC 2L Home O2 eval for possible d/c tomorrow (3) Hypokalemia: Code(s): E87.6 - Hypokalemia Status: Acute Assessment and Plan: Resolved (4) Morbid obesity: Code(s): E66.01 - Morbid (severe) obesity due to excess calories Status: Acute Assessment and Plan: Patient with history of lap band which is still in place. Weight loss is encouraged. (5) Obstructive sleep apnea on CPAP: Code(s): G47.33 - Obstructive sleep apnea (adult) (pediatric); Z99.89 - Dependence on other enabling machines and devices Status: Acute Assessment and Plan: CPAP for night at the home settings (6) Chronic obstructive pulmonary disease: Code(s): J44.9 - Chronic obstructive pulmonary disease, unspecified Status: Acute Assessment and Plan: Continue bronchodilators (7) Hypertension: Code(s): I10 - Essential (primary) hypertension Status: Chronic Assessment and Plan: Blood pressures stable Continue antihypertensives Monitor DS: Summary Hospital Course Hospital Course: 64-year-old lady with history of COPD, chronic respiratory failure, on home oxygen, GERD, hypercholesterolemia, essential hypertension, morbid obesity, obstructive sleep apnea on CPAP of 13 cm water pressure at home with increasing shortness of breath and positive COVID-19 test on 10/22/2020. Patient complained of increasing shortness of breath along with productive cough. EMS arrival to the house patient's O2 sats were in the 80s on her home oxygen. She denies any fevers or chills, chest pain, abdominal pain, nausea, vomiting. Patient did receive Dae & Dae COVID vaccine. She thinks she may have contracted from a that was on a youth field trip. Chest x-ray and chest CTA showed diffuse lung disease compatible COVID. No pulmonary embolism. She was treated was on up to 8 L high-flow oxygen via nasal cannula and is now back to her baseline 2 L with adequate O2 sats. Patient has been tolerating her diet. She does drop her oxygen saturation with movement. No loss of sense of taste or smell. She completed 10 days of dexamethasone and Remdesivir on 11/04/2020. She remains with a guarded prognosis and will discharge home. She has been advised to follow up withe her PCP. She has also been advised to return to the ED if she has difficulty breathiing. Time Spent with Patient Time attestation: Total time spent providing and/or coordinating discharge services: Exam Narrative: Const: General: no acute distress, alert and awake Orientation/consciousness: patient oriented x3 HENMT: Head: normocephalic and atraumatic Ears: hearing grossly normal bilaterally and external ears normal Face and sinus: face symmetric Mouth: Yes Normal oral and palatal mucosa present Eyes: Pupils: Equal, round and reactive pupils present EOM: EOMs intact bilaterally Neck: Neck: full ROM Thyroid: thyroid normal Chest: Chest palpation & inspection: normal inspection of the chest Resp: Effort & Inspection: normal respiratory effort Cardio: Jugular venous distension: no JVD Rate: regular rate Heart sounds: S2 normal heart sound pre
== END 2020-11-05 15:55 | disposition home health service (06) | DRG 177 ==
LOC: ANHED 16:25 → ANHICU 17:39 → ANH3MEDSUR 10-31 10:18 → ANHICU 11-07 08:05 → ANHIMU 11-07 08:05
PROVIDERS: Internal Medicine; Physician Assistant; Admitting Provider Internal Medicine; Emergency Provider Emergency Medicine; PCP Family Medicine; Visit Provider Internal Medicine
DX: U07.1 COVID-19 (principal); J96.21 Acute and chronic respiratory failure with hypoxia; J12.82 Pneumonia due to coronavirus disease 2019; Z68.44 Body mass index [BMI] 60.0-69.9, adult; J44.0 Chronic obstructive pulmonary disease with (acute) lower respiratory infection; K21.9 Gastro-esophageal reflux disease without esophagitis; E78.00 Pure hypercholesterolemia, unspecified; E87.6 Hypokalemia; E66.01 Morbid (severe) obesity due to excess calories; G47.33 Obstructive sleep apnea (adult) (pediatric); M79.7 Fibromyalgia; M19.90 Unspecified osteoarthritis, unspecified site; N32.81 Overactive bladder; Z99.81 Dependence on supplemental oxygen; Z98.42 Cataract extraction status, left eye; Z98.41 Cataract extraction status, right eye; Z90.49 Acquired absence of other specified parts of digestive tract; Z90.710 Acquired absence of both cervix and uterus; Z87.891 Personal history of nicotine dependence; Z98.84 Bariatric surgery status
CPT/HCPCS: 36415; 36600; 51701; 71045; 71275; 80053; 82375; 82565; 82728; 82805; 83050; 83615; 83735; 83880; 84100; 84132; 84145; 84460; 85025; 85027; 85380; 85610; 85730; 86140; 93005; 93306; 94003; 94618; 94640; 94660; 96372; 96374; 96375; 96376; 97110; 97162; 97165; 97530; 97535; 99291; A9270; G0378; J1100; J1650; J1940; J3262; Q9967

== ENCOUNTER → 2021-04-23 15:22 | Outpatient (CLI) | payer MEDICARE, SELFPAY ==
--- NOTE | ~2021-04-23 | MM_ITS ---
EXAMINATION: MM screening [facility] BI w daniel HISTORY: Screening mammogram TECHNIQUE: Craniocaudal and mediolateral oblique 3-D tomosynthesis images were obtained and synthetic 2-D images were generated. CAD analysis was submitted and interpreted. COMPARISON: 02/28/2019, 11/25/2017, 10/23/2016 BREAST PARENCHYMAL COMPOSITION: The breasts are almost entirely fatty. FINDINGS: RIGHT BREAST: There is no evidence of suspicious mass, calcification, or architectural distortion to suggest malignancy. There has been no significant interval change. LEFT BREAST: There appears to be a dilated subareolar duct in the upper outer breast. No suspicious m ass, calcification, or architectural distortion are identified. IMPRESSION: 1. Possible dilated subareolar duct of the left breast. 2. Additional mammographic views and possible breast ultrasound are recommended. BI-RADS Category 0: Incomplete: Needs additional imaging evaluation. Reviewed, dictated and finalized at location A. S DEVELOPMENT REPRESENTATIVE IMPRESSION: 1. Possible dilated subareolar duct of the left breast. 2. Additional mammographic views and possible breast ultrasound are recommended . BI-RADS Category 0: Incomplete: Needs additional imaging evaluation.
== END ==
PROVIDERS: Visit Provider Family Medicine
DX: Z12.31 Encounter for screening mammogram for malignant neoplasm of breast (principal); R92.8 Other abnormal and inconclusive findings on diagnostic imaging of breast
CPT/HCPCS: 77063; 77067

== ENCOUNTER → 2021-05-08 08:49 | Outpatient (CLI) | payer MEDICARE, SELFPAY ==
--- NOTE | ~2021-05-08 | MMUS_ITS ---
EXAMINATION: MM diagnostic [facility] LT w daniel, US breast LT limited HISTORY: Follow-up left breast asymmetry TECHNIQUE: Additional 3-D tomosynthesis images of the left breast were performed and synthetic 2-D im ages were generated. CAD analysis was submitted and interpreted. High resolution Limited left breast ultrasound was performed. COMPARISON: Comparison to multiple prior studies sequentially, with oldest reviewed study dated 07/06. BREAST PARENCHYMAL COMPOSITION: Breast composed of scattered areas of fibroglandular density FINDINGS: MAMMOGRAPHIC FINDINGS: There are no suspicious masses, calcifications or architectural distortion to suggest malignancy. ULTRASOUND: Limited left breast ultrasound: Mildly prominent subareolar ducts. No suspicious masses to suggest ma lignancy. IMPRESSION: 1. No evidence for malignancy in the left breast. 2. Routine yearly screening mammogram and regular clinical breast examination are recommended. BI-RADS Category 1: Negative Reviewed, dictated and finalized at location A. CLEANER IMPRESSION: 1. No evidence for malignancy in the left breast. 2. Routine yearly screening mammogram and regular clinical breast examination a re recommended. BI-RADS Category 1: Negative
== END ==
PROVIDERS: PCP Family Medicine; Visit Provider Family Medicine
DX: R92.8 Other abnormal and inconclusive findings on diagnostic imaging of breast (principal)
CPT/HCPCS: 76642; 77061; 77065; G0279

== ENCOUNTER → 2022-07-28 10:34 | Outpatient (CLI) | payer MEDICARE, SELFPAY ==
--- NOTE | ~2022-07-28 | MM_ITS ---
EXAMINATION: MM screening [facility] BI w daniel HISTORY: Screening mammogram TECHNIQUE: Craniocaudal and mediolateral oblique 3-D tomosynthesis images were obtained and synthetic 2-D images were generated. CAD analysis was submitted and interpreted. COMPARISON: 05/08/2021, 04/23/2021, 02/28/2019 BREAST PARENCHYMAL COMPOSITION: The breasts are almost entirely fatty. FINDINGS: No suspicious mass, calcification, or architectural distortion are identified in either oli ast to suggest malignancy. There has been no suspicious interval change. IMPRESSION: 1. No mammographic evidence of malignancy. 2. Recommend routine screening mammography in one year. BI-RADS Category 1: Negative Reviewed, dictated and finalized at location A.
== END ==
PROVIDERS: PCP Family Medicine; Visit Provider Family Medicine
DX: Z12.31 Encounter for screening mammogram for malignant neoplasm of breast (principal)
CPT/HCPCS: 77063; 77067

== ENCOUNTER 2023-10-01 09:10 | Outpatient (CLI) | payer MEDICARE, SELFPAY ==
--- NOTE | ~2023-10-01 | MM_ITS ---
EXAMINATION: MM screening [facility] BI w daniel HISTORY: Screening TECHNIQUE: Craniocaudal and mediolateral oblique 3-D tomosynthesis images were obtained and synthetic 2-D images were generated. CAD analysis was submitted and interpreted. COMPARISON: Comparison to multiple prior studies sequentially, with oldest reviewed study dated 05/2016. BREAST PARENCHYMAL COMPOSITION: Not dense: There are scattered areas of fibroglandular density. FINDINGS: There is no evidence of suspicious mass, calcification, or architectural distortion to sugg est malignancy in either breast. There has been no suspicious interval change. IMPRESSION: 1. No mammographic evidence of malignancy. 2. Recommend routine screening mammography in one year. BI-RADS Category 1: Negative Reviewed, dictated and finalized at location B.
== END 2023-10-01 09:11 | disposition home or self-care (01) ==
PROVIDERS: PCP Family Medicine; Visit Provider Family Medicine
DX: Z12.31 Encounter for screening mammogram for malignant neoplasm of breast (principal)
CPT/HCPCS: 77063; 77067